=== PATIENT | female | born 1960 | race Caucasian/White ===

== ENCOUNTER → 2016-09-27 | Outpatient (CLI) | payer BC ==
[~2016-09-27] MED LIST: AGG PO; ALEN1TAB21 PO; ATOR-24 PO; BUPR200T2 PO; CHOL100010 PO; CYM/60 PO; CYNI1000 IM; FLUT110A INH; INSPMPNVLG; LEVO125T72 PO; LSN25 PO; LSX40 PO; MAXAIR INH; MONT1TAB3 PO; PANT40TA PO; PRAM1TAB52 PO; PYRI50TA77 PO; TRAZ50TA35 PO
--- NOTE | 2016-09-27 13:41 | DIAGNOSTIC IMAGING REPORT ---
CHEST 2 VIEWS ROUTINE CLINICAL HISTORY: Shortness of breath. COMPARISON STUDY: Chest radiograph October 31, 2014. FINDINGS: Lung volumes are normal. There is no consolidation to suggest pneumonia. There is no evidence of pulmonary edema. Mild left basilar opacity suggests atelectasis. No pneumothorax or pleural effusions present. Cardiomediastinal silhouette is normal. There are cholecystectomy clips. IMPRESSION: No acute cardiopulmonary findings. Electronically signed by: Isaiah Higgins M.D. 09/27/2016 1:40 PM Dictated Date/Time: 09/27/2016 1:39 PM
[2016-09-27 14:52] LABS: BASO % 0.2 %; BASO ABS # 0.02 K/uL (0-0.2); COMPLETE YES; EOS % 0.1 %; IG% 0.2 %; LYMPH % 14.9 %; MEAN CELL VOLUME 89.7 fL (80-100); MEAN CORPUSCULAR HEMOGLOBIN 30.8 pg (25-34); MEAN CORPUSCULAR HGB CONC 34.4 g/dl (32-36); MONO % 9.5 %; NEUT % 75.1 %; PLATELET COUNT 302 K/uL (130-400); RED BLOOD COUNT 4.35 M/uL (4.2-5.4); WHITE BLOOD COUNT 8.72 K/uL (4.8-10.8)
[2016-09-27 14:55] LABS: ALB/GLOB RATIO 1.1 (0.9-2); ALT/SGPT 26 U/L (12-78); AST/SGOT 14 U/L (15-37); BLOOD UREA NITROGEN 24 mg/dl (7-18); BUN/CREATININE RATIO 20.4 (10-20); CALCIUM 9.3 mg/dl (8.5-10.1); CARBON DIOXIDE 27 mmol/L (21-32); CHLORIDE 101 mmol/L (98-107); GLUCOSE 264 mg/dl (70-99); POTASSIUM 4.2 mmol/L (3.5-5.1); SODIUM 136 mmol/L (136-145)
[2016-09-27 15:05] LABS: ALKALINE PHOSPHATASE 84 U/L (45-117); THYROID STIMULATING HORMONE 0.614 uIu/ml (0.300-4.500)
== END | disposition home or self-care (01) ==
LOC: C.RAD1850 13:06
PROVIDERS: ATTEND Internal Medicine
DX: R06.02 Shortness of breath (principal); E55.9 Vitamin D deficiency, unspecified; E03.9 Hypothyroidism, unspecified

== ENCOUNTER 2016-12-07 22:41 | Inpatient (IN) | payer BC ==
[~2016-12-07] VITALS: Ht 172.7 cm; Wt 103.0 kg
[2016-12-07] MEDS ORDERED: SODIUM CHLORIDE 0.9% 1000ML 1,000 ML IV SCH (23:02)
[2016-12-07 23:40] LABS: BASO % 0.6 %; BASO ABS # 0.03 K/uL (0-0.2); COMPLETE YES; EOS % 2.1 %; HEMATOCRIT 42.5 % (37-47); IG% 0.2 %; LYMPH % 26.6 %; LYMPH ABS # 1.39 K/uL (1.2-3.4); MEAN CELL VOLUME 92.8 fL (80-100); MEAN CORPUSCULAR HEMOGLOBIN 30.3 pg (25-34); MEAN CORPUSCULAR HGB CONC 32.7 g/dl (32-36); MONO % 12.1 %; NEUT % 58.4 %; PLATELET COUNT 284 K/uL (130-400); RED BLOOD COUNT 4.58 M/uL (4.2-5.4); WHITE BLOOD COUNT 5.22 K/uL (4.8-10.8)
[2016-12-07 23:50] LABS: PROTHROMBIN TIME (PATIENT) 10.2 SECONDS (9.0-12.0)
[2016-12-08] VITALS (9 sets, daily range): BP systolic 111–163; BP diastolic 68–78; PULSE 72–81; TEMP 36.6–37.1; O2SAT 95–100; BMI 33.9
[2016-12-08] MEDS ORDERED: PHARMACIST DISCHARGE MED REC CONSULT PRN
[2016-12-08] MEDS ORDERED: POLYETHYLENE (MIRALAX) 17 GM PACK PO PRN (00:15)
[2016-12-08] MEDS ORDERED: ALUMINUM/MAGNESIUM/SIMETH (MAALOX MAX) 30 ML UDC PO PRN (00:15)
[2016-12-08] MEDS ORDERED: MAGNESIUM HYDROXIDE SUSP 30 ML UDC PO PRN (00:15)
[2016-12-08] MEDS ORDERED: ONDANSETRON INJ 2 MG/ML 2 ML VIAL IV PRN (00:15)
[2016-12-08] MEDS ORDERED: ACETAMINOPHEN 325 MG TAB PO PRN (00:15)
[2016-12-08 00:16] LABS: BLOOD UREA NITROGEN 11 mg/dl (7-18); BUN/CREATININE RATIO 10.2 (10-20); CARBON DIOXIDE 29 mmol/L (21-32); CHLORIDE 106 mmol/L (98-107); GLUCOSE 275 mg/dl (70-99); SODIUM 143 mmol/L (136-145)
--- NOTE | 2016-12-08 00:22 | History and Physical ---
History & Physical Date & Time of Service: December 08, 2016 at 00:11 Chief Complaint: Numbness L Side Of Body Primary Care Physician: Adolfo Shay M.D. History of Present Illness Source: patient 56 y/o F Hx DM, HTN, HPL - CVA x 2 - L pontine 2006, R thalamic 2010. Developed acute onset of L sided numbness and mild dizziness in the afternoon. Numbness involves her L tongue, face, neck, upper and lower extremities. The symptoms began over 6 hours prior to arrival at the hospital and persist to a lesser degree at the time of admission. She was evaluated by the stroke service in the ER and did not qualify for TPA. She has not had unilateral weakness, visual disturbances, or a LEAHY. The pt states that her symptoms are identical to the symptoms she exhibited when she had her 2nd CVA in 2010. She was taking ASA prior to her initial CVA in 2005. She was then placed on Plavix following her initial CVA and was switched to Aggrenox after her 2nd CVA. Past Medical/Surgical History Medical Problems: (1) Asthma Status: Chronic (2) Diabetes Status: Chronic (3) Kidney disease Status: Chronic 4) HTN 5) HPL 6) Depression 7) CVA x 2 - R weakness 2006 - L pontine infarct - L numbness 2010 - R thalamic infarct 8) KRAIG - complies with CPAP 9) Hypothyroidism Family History Cancer Diabetes mellitus Gallbladder disease Heart disease Hypertension Kidney disease Kidney stones Mother owing to complications of RA Father is living - AF Social History Retired form [employer] following her 2nd CVA Smoking Status: Never Smoker Alcohol Use: occasionally (Rare ETOH) Drug Use: none Marital Status: single Housing status: lives with family Occupational Status: employed Immunizations History of Influenza Vaccine: N/A History of Tetanus Vaccine?: Yes History of Pneumococcal: Yes Pneumococcal Date: Dec 17, 2005 History of Hepatitis B Vaccine: Unknown Multi-Drug Resistant Organisms History of MDRO: No Allergies Coded Allergies: Buspirone (Verified Allergy, Unknown, N/V, 12/08/16) Chocolate (Verified Allergy, Unknown, MAKES HER ANXIOUS, DEPRESSED, ) Clindamycin (Verified Allergy, Unknown, RASH?, 12/08/16) Doxycycline (Verified Allergy, Unknown, N/V, 12/08/16) Lactose (Verified Allergy, Unknown, WAS TOLD TO AVOID DAIRY, 12/08/16) Meperidine (Verified Allergy, Unknown, NAUSEA AND VOMITING, 12/08/16) Minocycline (Verified Allergy, Unknown, ., 12/08/16) Paroxetine (Verified Allergy, Unknown, ., 12/08/16) Penicillins (Verified Allergy, Unknown, NAUSEA, 12/08/16) Serotonin Reuptake Inhibitors (Verified Allergy, Unknown, BUSPAR, PAXIL- VERY TIRED, 12/08/16) Sulfa Antibiotics (Verified Allergy, Unknown, BACTRIM, 12/08/16) Sulfamethoxazole w/Trimethoprim (Verified Allergy, Unknown, N/V, 12/08/16) Tetracycline (Verified Allergy, Unknown, MINOCYCLINE, DOXYCYCLINE-LUPUS SYMPTOMS, 12/08/16) (PT WAS ON TCN AT HOME 12/16/10 ADMIT, PER MED REC) Yeast (Verified Allergy, Unknown, UNKNOWN-EATS BREAD PRODUCTS, 12/08/16) Home Medications Scheduled Alendronate Sodium (Alendronate Sodium), 35 MG PO WK Atorvastatin (Lipitor), 40 MG PO HS Bupropion Hcl (Wellbutrin Sr), 200 MG PO BID Cholecalciferol (Vitamin D), 2 TABS PO QAM Cyanocobalamin (Cyanocobalamin), 1 ML IM MONTHLY Dipyridamole/Aspirin (Aggrenox 25-200 mg), 1 CAP PO BID Duloxetine HCl (Cymbalta), 60 MG PO BID Fluticasone Propionate Hfa (Flovent Hfa 110MCG Inhaler), 2 PUFF INH BID Insulin Aspart (novoLOG INSULIN PUMP ), 1 EA N/A UD Levothyroxine Sodium (Synthroid), 125 MCG PO QAM Lisinopril (Lisinopril), 2.5 MG PO HS Montelukast Sodium (Singulair), 10 MG PO HS Pantoprazole (Protonix), 40 MG PO QAM Pramipexole Dihydrochloride (Mirapex), 2 TABS PO HS Pyridoxine Hcl (Vitamin B 6), 1 TAB PO QAM Trazodone Hcl (Trazodone), 25 MG PO HS Scheduled PRN Furosemide (Furosemide), 40 MG PO QAM PRN for PRN [Maxair], 2 PUFFS INH QID PRN for Shortness of Breath Review of Systems Constitutional: No chills, No fever, No sweats Eyes: No worsening of vision ENT: No hearing loss, No nasal symptoms, No unusual epistaxis Respiratory: No cough, No wheezing Cardiovascular: No PND, No chest pain, No orthopnea Abdomen: No pain, No vomiting Genitourinary - Female: No dysuria, No hematuria, No urinary frequency, No urinary incontinence, No urinary retention, No urinary urgency Neurologic: + numbness/tingling, No memory loss, No weakness Psychiatric: No depression symptoms Endocrine: No fatigue Hematologic / Lymphatic: No abnormal bleeding/bruising Integumentary: No rash Allergic / Immunologic: No environmental allergies Physical Exam Vital Signs Date Time Temp Pulse Resp B/P Pulse Ox O2 Delivery O2 Flow Rate FiO2 12/07/16 23:43 74 20 143/61 98 Room Air 12/07/16 23:37 98 Room Air 12/07/16 23:30 82 16 158/73 100 Room Air 12/07/16 23:11 76 16 152/63 12/07/16 23:07 76 16 149/74 12/07/16 23:02 83 12/07/16 22:43 36.6 77 18 165/71 98 Room Air General Appearance: WD/WN, no apparent distress Head: normocephalic, atraumatic Eyes: normal inspection, PERRL, EOMI ENT: normal ENT inspection, pharynx normal Neck: supple, no JVD Respiratory/Chest: chest non-tender, lungs clear, normal breath sounds, no respiratory distress, no accessory muscle use Cardiovascular: regular rate, rhythm, no edema, no gallop Abdomen/GI: normal bowel sounds, non tender, soft Back: normal inspection, no CVA tenderness, no muscle spasm, normal range of motion Extremities/Musculoskelatal: normal inspection, no calf tenderness, normal capillary refill, no pedal edema, normal range of motion Neurologic/Psych: + pertinent finding (AAO x 3 , no facial asymmetry, tongue deviation, nystagmus or periorbital deficits. Strength is equal in all extrems , no pronator drift or dorsiflexion deficits. Coordination is intact - there is numbness to light touch over the L upper and lower extremities and L shoulder - sensation is intat over her face and neck) Skin: normal color, warm/dry, no rash Diagnostics Laboratory Results Results Past 24 Hours Test 12/07/16 23:02 12/07/16 23:03 12/07/16 23:29 12/07/16 23:51 Range/Units Creatine Kinase MB Ratio 0-3.0 Bedside Glucose 278 70-90 mg/dl White Blood Count 5.22 4.8-10.8 K/uL Red Blood Count 4.58 4.2-5.4 M/uL Hemoglobin 13.9 12.0-16.0 g/dL Hematocrit 42.5 37-47 % Mean Corpuscular Volume 92.8 80-100 fL Mean Corpuscular Hemoglobin 30.3 25-34 pg Mean Corpuscular Hemoglobin Concent 32.7 32-36 g/dl Platelet Count 284 130-400 K/uL Mean Platelet Volume 10.0 7.4-10.4 fL Neutrophils (%) (Auto) 58.4 % Lymphocytes (%) (Auto) 26.6 % Monocytes (%) (Auto) 12.1 % Eosinophils (%) (Auto) 2.1 % Basophils (%) (Auto) 0.6 % Neutrophils # (Auto) 3.05 1.4-6.5 K/uL Lymphocytes # (Auto) 1.39 1.2-3.4 K/uL Monocytes # (Auto) 0.63 0.11-0.59 K/uL Eosinophils # (Auto) 0.11 0-0.5 K/uL Basophils # (Auto) 0.03 0-0.2 K/uL RDW Standard Deviation 44.7 36.4-46.3 fL RDW Coefficient of Variation 13.1 11.5-14.5 % Immature Granulocyte % (Auto) 0.2 % Immature Granulocyte # (Auto) 0.01 0.00-0.02 K/uL Prothrombin Time 10.2 9.0-12.0 SECONDS Prothromb Time International Ratio 1.0 0.9-1.1 Activated Partial Thromboplast Time 25.3 21.0-31.0 SECONDS Partial Thromboplastin Ratio 1.0 Potassium Level 3.5-5.1 mmol/L Total Creatine Kinase 26-192 U/L Test 12/08/16 00:03 Range/Units Diagnostic Radiology NO acute findings on CT head EKG NSR , R axis - unchanged Impression Assessment and Plan 56 y/o F Hx DM, HTN, HPL - CVA x 2 - L pontine 2007, R thalamic 2010. Developed acute onset of L sided numbness and mild dizziness in the afternoon. Numbness involves her L tongue, face, neck, upper and lower extremities. The symptoms began over 6 hours prior to arrival at the hospital. States that her symptoms are identical to the symptoms she exhibited when she had her 2nd CVA in 2010. 1) CVA - admitted under CVA protocol - TPA is not indicated and she was out of the therapeutic window regardless. She was taking ASA prior to her initial CVA in 2005. She was then placed on Plavix following her initial CVA and was switched to Aggrenox after her 2nd CVA. Stroke service had advised that she continue Aggrenox as prescribed. We have increased her Statin dose and requested an AM neurology consult. MRI/ MRA, carotid studies scheduled. 2) DM - ot has a oumo which she can continue to use 3) HTN - antihypertensives held - she is normotensive on admission 4) KRAIG - CPAP HS 5) Asthma - albuterol PRN and cont Advair 6) CKD is listed in history - BMP pending at time of admission Full code - Heparin prophylaxis Total time for this admit including review of labs, meds, EKG, CT records - discussion with pt and ER attending - 43 min Level of Care Telemetry Resuscitation Status FULL RESUSCITATION VTE Prophylaxis VTE Risk Assessment Done? Y/N: Yes Risk Level: Low Given or contraindicated: Unfractionated heparin SQ
--- NOTE | 2016-12-08 02:05 | EMERGENCY ROOM VISIT NOTE ---
History Report prepared by Peter: Do Betancourt Under the Supervision of: Dr. Kunal Downey M.D. First contact with patient: 22:53 Chief Complaint: STROKE SYMPTOMS Stated Complaint: NUMBNESS L SIDE OF BODY History of Present Illness The patient is a 56 year old female who presents to the Emergency Room with complaints of worsening stroke-like symptoms that started 2.5 hours ago, around 2029. The patient states that she is experiencing tongue numbness, neck numbness , left arm numbness, and left leg numbness. She states that her symptoms started with numbness in her left arm then spread to the rest of her body. The patient is also experiencing dizziness. She denies headaches, visual changes, trouble swallowing, recent fevers, recent head trauma, chest pain, new shortness of breath, trouble ambulating, one-sided weakness, vomiting, diarrhea , and recent illness. The patient has a history of a thalamic stroke in 2010. She had some residual changes in sensation in her left arm and left leg from that stroke, but today her left arm and left leg were significantly more numb than they typically are. The patient states that her current symptoms are the same as the symptoms she experienced with her previous stroke. The patient is on Aggrenox and denies being on Coumadin or Xarelto. Source of History: patient Onset: 2.5 hours ago, around 2029 Position: head, tongue, neck, arm (left), leg (left) Quality: other (stroke-like symptoms) Timing: worsening Associated Symptoms: + numbness (tongue, neck, left arm, left leg), No SOB, No chest pain, No diarrhea, No fevers, No headache, No vomiting, No weakness ( one-sided) Note: dizziness, no visual changes, no trouble swallowing, no recent head trauma, no trouble ambulating, no recent illness Review of Systems See HPI for pertinent positives & negatives. A total of 10 systems reviewed and were otherwise negative. Past Medical & Surgical Medical Problems: (1) Asthma (2) Diabetes (3) Kidney disease Family History Cancer Diabetes mellitus Gallbladder disease Heart disease Hypertension Kidney disease Kidney stones Social History Smoking Status: Never Smoker Alcohol Use: none Drug Use: none Marital Status: single Occupation Status: employed Current/Historical Medications Scheduled Alendronate Sodium (Alendronate Sodium), 35 MG PO WK Atorvastatin (Lipitor), 40 MG PO HS Bupropion Hcl (Wellbutrin Sr), 200 MG PO BID Cholecalciferol (Vitamin D), 2 TABS PO QAM Cyanocobalamin (Cyanocobalamin), 1 ML IM MONTHLY Dipyridamole/Aspirin (Aggrenox 25-200 mg), 1 CAP PO BID Duloxetine HCl (Cymbalta), 60 MG PO BID Fluticasone Propionate Hfa (Flovent Hfa 110MCG Inhaler), 2 PUFF INH BID Insulin Aspart (novoLOG INSULIN PUMP ), 1 EA N/A UD Levothyroxine Sodium (Synthroid), 125 MCG PO QAM Lisinopril (Lisinopril), 2.5 MG PO HS Montelukast Sodium (Singulair), 10 MG PO HS Pantoprazole (Protonix), 40 MG PO QAM Pramipexole Dihydrochloride (Mirapex), 2 TABS PO HS Pyridoxine Hcl (Vitamin B 6), 1 TAB PO QAM Trazodone Hcl (Trazodone), 25 MG PO HS Scheduled PRN Furosemide (Furosemide), 40 MG PO QAM PRN for PRN [Maxair], 2 PUFFS INH QID PRN for Shortness of Breath Allergies Coded Allergies: Buspirone (Verified Allergy, Unknown, N/V, 12/08/16) Chocolate (Verified Allergy, Unknown, MAKES HER ANXIOUS, DEPRESSED, ) Clindamycin (Verified Allergy, Unknown, RASH?, 12/08/16) Doxycycline (Verified Allergy, Unknown, N/V, 12/08/16) Lactose (Verified Allergy, Unknown, WAS TOLD TO AVOID DAIRY, 12/08/16) Meperidine (Verified Allergy, Unknown, NAUSEA AND VOMITING, 12/08/16) Minocycline (Verified Allergy, Unknown, ., 12/08/16) Paroxetine (Verified Allergy, Unknown, ., 12/08/16) Penicillins (Verified Allergy, Unknown, NAUSEA, 12/08/16) Serotonin Reuptake Inhibitors (Verified Allergy, Unknown, BUSPAR, PAXIL- VERY TIRED, 12/08/16) Sulfa Antibiotics (Verified Allergy, Unknown, BACTRIM, 12/08/16) Sulfamethoxazole w/Trimethoprim (Verified Allergy, Unknown, N/V, 12/08/16) Tetracycline (Verified Allergy, Unknown, MINOCYCLINE, DOXYCYCLINE-LUPUS SYMPTOMS, 12/08/16) (PT WAS ON TCN AT HOME 12/16/10 ADMIT, PER MED REC) Yeast (Verified Allergy, Unknown, UNKNOWN-EATS BREAD PRODUCTS, 12/08/16) Physical Exam Vital Signs Date Time Temp Pulse Resp B/P Pulse Ox O2 Delivery O2 Flow Rate FiO2 12/07/16 23:43 74 20 143/61 98 Room Air 12/07/16 23:37 98 Room Air 12/07/16 23:30 82 16 158/73 100 Room Air 12/07/16 23:11 76 16 152/63 12/07/16 23:07 76 16 149/74 12/07/16 23:02 83 12/07/16 22:43 36.6 77 18 165/71 98 Room Air Physical Exam Constitutional: Vital signs reviewed. Eyes: Pupils are equal round reactive to light. Conjunctiva are noninjected. ENT: Pharynx is clear without erythema or exudate. Mucous membranes are moist. Neck supple without meningeal signs. Respiratory: Clear to auscultation bilaterally. Breath sounds are equal bilaterally. Cardiovascular: Regular rate and rhythm. No rubs or gallops. GI: Soft, nondistended and nontender. Bowel sounds are present. Musculoskeletal: No peripheral edema. No lower extremity tenderness. Integumentary: No cyanosis. Neurological: The patient is awake and alert. Cranial nerves II-XII are intact except for diminished sensation to the upper face. Motor is 5 out of 5 all extremities except the left lower extremity which is 4-5. Sensation is intact to light touch all extremities but diminished in the left side over the neck, leg and arm. Normal speech. No pronator drift. No limb ataxia. Psychiatric: Normal affect. Medical Decision & Procedures ER Provider Diagnostic Interpretation: X-ray results as stated below per interpretation by me and CT results as stated below per my review and the statrad's interpretation: CHEST X-RAY: MY IMPRESSION: No acute cardiopulmonary process. No pneumonia. CT HEAD: STATRAD IMPRESSION: Comparison MRI brain 07/12/[address] head without contrast 03/21/2011. No ICH, mass effect or edema. No noncontrast CT evidence of acute cortical stroke. Visualized sinuses and mastoid air cells are clear. Laboratory Results 12/07/16 23:29 Red Blood Count 4.58, Mean Corpuscular Volume 92.8, Mean Corpuscular Hemoglobin 30.3, Mean Corpuscular Hemoglobin Concent 32.7, Mean Platelet Volume 10.0, Neutrophils (%) (Auto) 58.4, Lymphocytes (%) (Auto) 26.6, Monocytes (%) (Auto) 12.1, Eosinophils (%) (Auto) 2.1, Basophils (%) (Auto) 0.6, Neutrophils # (Auto ) 3.05, Lymphocytes # (Auto) 1.39, Monocytes # (Auto) 0.63, Eosinophils # (Auto ) 0.11, Basophils # (Auto) 0.03 12/07/16 23:29 Test 12/07/16 23:03 12/07/16 23:29 Bedside Glucose 278 mg/dl (70-90) White Blood Count 5.22 K/uL (4.8-10.8) Red Blood Count 4.58 M/uL (4.2-5.4) Hemoglobin 13.9 g/dL (12.0-16.0) Hematocrit 42.5 % (37-47) Mean Corpuscular Volume 92.8 fL (80-100) Mean Corpuscular Hemoglobin 30.3 pg (25-34) Mean Corpuscular Hemoglobin Concent 32.7 g/dl (32-36) Platelet Count 284 K/uL (130-400) Mean Platelet Volume 10.0 fL (7.4-10.4) Neutrophils (%) (Auto) 58.4 % Lymphocytes (%) (Auto) 26.6 % Monocytes (%) (Auto) 12.1 % Eosinophils (%) (Auto) 2.1 % Basophils (%) (Auto) 0.6 % Neutrophils # (Auto) 3.05 K/uL (1.4-6.5) Lymphocytes # (Auto) 1.39 K/uL (1.2-3.4) Monocytes # (Auto) 0.63 K/uL (0.11-0.59) Eosinophils # (Auto) 0.11 K/uL (0-0.5) Basophils # (Auto) 0.03 K/uL (0-0.2) RDW Standard Deviation 44.7 fL (36.4-46.3) RDW Coefficient of Variation 13.1 % (11.5-14.5) Immature Granulocyte % (Auto) 0.2 % Immature Granulocyte # (Auto) 0.01 K/uL (0.00-0.02) Prothrombin Time 10.2 SECONDS (9.0-12.0) Prothromb Time International Ratio 1.0 (0.9-1.1) Activated Partial Thromboplast Time 25.3 SECONDS (21.0-31.0) Partial Thromboplastin Ratio 1.0 Anion Gap 8.0 mmol/L (3-11) Est Creatinine Clear Calc Drug Dose 71.0 ml/min Estimated GFR () 65.0 Estimated GFR (Non- 56.1 BUN/Creatinine Ratio 10.2 (10-20) Calcium Level 9.0 mg/dl (8.5-10.1) Creatine Kinase MB 0.6 ng/ml (0.5-3.6) Creatine Kinase MB Ratio (0-3.0) Troponin I < 0.015 ng/ml (0-0.045) Laboratory results as reviewed by me. Medications Administered Medications (Trade) Dose Ordered Sig/Aram Route Start Time Stop Time Status Last Admin Dose Admin Sodium Chloride (Nss 1000ml) 1,000 ml @ 50 mls/hr Q20H IV 12/07/16 23:02 12/08/16 01:48 DC 12/07/16 23:38 50 MLS/HR ECG Indication: other (neuro symptoms) Rate (beats per minute): 78 Rhythm: normal sinus Findings: no acute ischemic change, no ectopy ED Course 2257: The patient was evaluated in room C8. A complete history and physical exam was performed. 2301: A stroke alert was called based on my physical exam findings. 2302: Ordered Sodium Chloride 1000 ml @ 50 mls/hr IV 2322: The patient just got back from CT and the patient was moved to room A1. 2325: I spoke with Dr. Reese of Radiology. He said that the patient has nothing acute on her head CT. 2328: I discussed the option of tPA with the patient and her family. The patient agrees that she does not want tPA even if it is indicated. 2331: I spoke with Dr. Lam of [facility]. We discussed the patient and her results. He states that she is not a tPA candidate because she is outside of the 3 hour window and has mild symptoms. 2332: Upon reevaluation, the patient's are unchanged. I discussed mulu's findings with the patient and her family. They verbalized agreement of the treatment plan. The patient will be evaluated for further management. 6918: I spoke with Dr. Macias of [facility]. We discussed the patient and her results. The patient will be further evaluated by him. Medical Decision This is a 56-year-old female who presents with neurologic symptoms. Differential diagnosis includes CVA, TIA, intracranial hemorrhage, intracranial mass, metabolic derangement. I did perform a limited focused review of portions of the patient's old chart on the electronic medical record. The patient had a right-sided thalamic stroke in 2010. Medication Reconciliation: I attest that I have personally reviewed the patient' s current medication list. Blood Pressure Screening: Patient was found to have an elevated blood pressure and was referred to their primary doctor for recheck and further treatment. I did evaluate the patient as noted above. The patient has a prior history of stroke. She is presenting with similar stroke symptoms and has deficits on her left side as described above. I immediately called a stroke alert. After my evaluation the patient has had symptoms for over 2-1/2 hours. IV access was established. The patient was placed on a continuous monitor tech. I did order a stat CT of the head. I did review the images myself as well as the radiology report as described above. There is no evidence of acute process per the radiologist. She is now chest at the 3 hour edel. I did immediately call the neurologist commissioning manager. After discussion of the patient he didn't feel the patient was a candidate for IV TPA. She is past 3 hour edel, has mild symptoms and is not a candidate for the extended for the four and a half hour period. I did have a long discussion with her about this and she agreed that she did not wish to have TPA even if she was a candidate at this time. I did order and personally review the patient's 12-lead EKG and chest x-ray as described above. I did order and review the patient's blood work as noted in the electronic medical record. The patient has no change in her symptoms. The neurologist recommended permissive hypertension and continue her Aggrenox. The case was discussed with the shelter case manager and hospitalist. Consults Time Called: [phone] Consulting Physician: Dr. Reese - Radiology Returned Call: [phone] Reese of Radiology. He said that the patient has nothing acute on her head CT. Additional Consults: Time Called: [phone] Consulted Physician: Dr. Lam - [facility] Returned Call: [phone] Additional Comments: I spoke with Dr. Lam of [facility]. We discussed the patient and her results. He states that she is not a tPA candidate because she is outside of the 3 hour window and has mild symptoms. Time Called: [phone] Consulted Physician: Dr. Macias - [facility] Returned Call: [phone] Additional Comments: I spoke with Dr. Macias of [facility]. We discussed the patient and her results. The patient will be further evaluated by him. Impression Primary Impression: CVA (cerebral vascular accident) Scribe Attestation The scribe's documentation has been prepared under my direct and personally reviewed by me in its entirety. I confirm that the note above accurately reflects all work, treatment, procedures, and medical decision making performed by me. Departure Information Dispostion Being Evaluated By Hospitalist Referrals Adolfo Shay M.D. (PCP) Patient Instructions My [facility] Stroke History Time Last Known Well 2030 Stroke t-PA Criteria Reviewed Does NOT meet criteria for t-PA Reason t-PA Not Given Treatment not indicated Extended Window (3-4.5 hour) History of diabetes AND stroke Problem Qualifiers Primary Impression: CVA (cerebral vascular accident) CVA mechanism: unspecified Qualified Codes: I63.9 - Cerebral infarction, unspecified
[2016-12-08] MEDS ORDERED: INSULIN ASPART 100 UNITS/ML VIAL SC PRN (03:30)
[2016-12-08] MEDS ORDERED: GLUCOSE 40% GEL 15 GM TUBE PO PRN (03:30)
[2016-12-08] MEDS ORDERED: GLUCAGON FOR INJ 1 MG VIAL SQ PRN (03:30)
[2016-12-08] MEDS ORDERED: GLUCOSE 10 TABS/TUBE PO PRN (03:30)
[2016-12-08] MEDS ORDERED: DEXTROSE 50% 50 ML SYR IV PRN (03:30)
[2016-12-08] MEDS: LEVOTHYROXINE 125 MCG TAB PO SCH (05:31)
[2016-12-08] MEDS: HEPARIN SOD 5000 UNIT/0.5 ML CARP SQ SCH ×3 (05:33→20:49)
--- NOTE | 2016-12-08 06:35 | DIAGNOSTIC IMAGING REPORT ---
CT OF THE HEAD WITHOUT CONTRAST CLINICAL HISTORY: Stroke alert. Left sided numbness. COMPARISON STUDY: MRI the brain July 12, 2015. CT DOSE: 614.27 mGy.cm TECHNIQUE: Helical axial images of the head were obtained without IV contrast. Automated exposure control was utilized for the study. FINDINGS: No acute intracranial hemorrhage, midline shift or mass effect is present. Ventricular system is normal. Basilar cisterns are patent. There are no CT findings to suggest acute dural sinus thrombosis or acute territorial infarct. White matter hypodensities are unchanged. There are no calvarial abnormalities. Visualized portions of the sinuses and mastoid air cells are clear. IMPRESSION: No acute intracranial findings. Electronically signed by: Isaiah Higgins M.D. 12/08/2016 6:34 AM Dictated Date/Time: 12/08/2016 6:31 AM
--- NOTE | 2016-12-08 06:50 | DIAGNOSTIC IMAGING REPORT ---
CHEST ONE VIEW PORTABLE CLINICAL HISTORY: Stroke COMPARISON STUDY: Chest radiograph September 27, 2016. FINDINGS: Lung volumes are normal. There is no pneumothorax or pleural effusion. There is no consolidation to suggest pneumonia. There is no evidence of pulmonary edema. Linear left lower lung opacity favors atelectasis or scarring. IMPRESSION: No acute cardiopulmonary findings. Electronically signed by: Isaiah Higgins M.D. 12/08/2016 6:49 AM Dictated Date/Time: 12/08/2016 6:49 AM
[2016-12-08] MEDS: NovoLOG INSULIN PUMP SCH ×3 (07:00→20:42)
[2016-12-08] MEDS: FLUTICASONE HFA 110MCG INHALER INH SCH ×2 (07:40→20:43)
[2016-12-08] MEDS: DIPYRIDAMOLE/ASPIRIN CAP PO SCH ×2 (07:45→20:45)
[2016-12-08] MEDS: DULOXETINE HCL 60 MG CAP PO SCH ×2 (07:45→20:43)
[2016-12-08] MEDS: PANTOprazole SOD 40 MG TAB PO SCH (07:46)
[2016-12-08] MEDS: BuPROPion SR 100 MG TABCR PO SCH ×2 (07:46→20:44)
--- NOTE | 2016-12-08 09:16 | Neurology Consultation ---
Neurology Consultation Date of Consultation: December 08, 2016. Attending Physician: Titi Macias M.D. Primary Care Physician: Adolfo Shay M.D. Reason for Consultation: "CVA" History of Present Illness Source: patient, hospital records The patient is a 56-year-old female with a chief complaint of numbness. She indicates the numbness began acutely, last night, about 2-1/2 hours prior to her evaluation in the emergency department. The numbness affected the left side of her body including the face arm and leg although it has been gradually improving. This morning, the numbness affects only her left upper extremity. She has some associated dizziness at the time of symptom onset of this particular symptom has resolved. She denies headache. The patient has a history of multiple ischemic infarcts and is currently prescribed Aggrenox. She has previously been on Plavix. Past medical history notable for insulin-dependent diabetes mellitus for which the patient has an insulin pump, hypertension, depression, restless leg syndrome, diabetic peripheral neuropathy and retinopathy. Family history is notable for hypertension and diabetes mellitus. Past Medical/Surgical History Medical Problems: (1) Asthma Status: Chronic (2) CVA (cerebral vascular accident) Status: Acute (3) Diabetes Status: Chronic (4) Kidney disease Status: Chronic Family History Family history notable for hypertension and diabetes mellitus Social History Alcohol Use: occasionally (Rare ETOH) Drug Use: none Marital Status: single Occupation Status: employed Allergies Coded Allergies: Buspirone (Verified Allergy, Unknown, N/V, 12/08/16) Chocolate (Verified Allergy, Unknown, MAKES HER ANXIOUS, DEPRESSED, ) Clindamycin (Verified Allergy, Unknown, RASH?, 12/08/16) Doxycycline (Verified Allergy, Unknown, N/V, 12/08/16) Lactose (Verified Allergy, Unknown, WAS TOLD TO AVOID DAIRY, 12/08/16) Meperidine (Verified Allergy, Unknown, NAUSEA AND VOMITING, 12/08/16) Minocycline (Verified Allergy, Unknown, ., 12/08/16) Paroxetine (Verified Allergy, Unknown, ., 12/08/16) Penicillins (Verified Allergy, Unknown, NAUSEA, 12/08/16) Serotonin Reuptake Inhibitors (Verified Allergy, Unknown, BUSPAR, PAXIL- VERY TIRED, 12/08/16) Sulfa Antibiotics (Verified Allergy, Unknown, BACTRIM, 12/08/16) Sulfamethoxazole w/Trimethoprim (Verified Allergy, Unknown, N/V, 12/08/16) Tetracycline (Verified Allergy, Unknown, MINOCYCLINE, DOXYCYCLINE-LUPUS SYMPTOMS, 12/08/16) (PT WAS ON TCN AT HOME 12/16/10 ADMIT, PER MED REC) Yeast (Verified Allergy, Unknown, UNKNOWN-EATS BREAD PRODUCTS, 12/08/16) Current Inpatient Medications Current Inpatient Medications Medications (Trade) Dose Ordered Sig/Aram Route Start Time Stop Time Status Last Admin Dose Admin Miscellaneous Information (Pharmacist Discharge Med Rec Consult) 1 ea UD PRN N/A 12/08/16 00:00 01/07/17 00:00 Atorvastatin Calcium (Lipitor Tab) 80 mg HS PO 12/08/16 21:00 01/07/17 20:59 Bupropion HCl (Wellbutrin-Sr Tab) 200 mg BID PO 12/08/16 09:00 01/07/17 08:59 12/08/16 07:46 200 MG Dipyridamole/ Aspirin (Aggrenox 200MG/ 25MG Cap) 1 cap BID PO 12/08/16 09:00 01/07/17 08:59 12/08/16 07:45 1 CAP Duloxetine HCl (Cymbalta Cap) 60 mg BID PO 12/08/16 09:00 01/07/17 08:59 12/08/16 07:45 60 MG Fluticasone Propionate (Flovent Hfa 110MCG Inhaler) 1 puffs BID INH 12/08/16 09:00 01/07/17 08:59 12/08/16 07:40 1 PUFFS Insulin Aspart (novoLOG INSULIN PUMP) 1 ea ACHS N/A 12/08/16 07:00 01/07/17 06:59 Levothyroxine Sodium (Synthroid Tab) 125 mcg DAILYBB PO 12/08/16 06:00 01/07/17 05:59 12/08/16 05:31 125 MCG Montelukast Sodium (Singulair Tab) 10 mg HS PO 12/08/16 21:00 01/07/17 20:59 Pantoprazole Sodium (Protonix Tab) 40 mg QAM PO 12/08/16 09:00 01/07/17 08:59 12/08/16 07:46 40 MG Pramipexole Dihydrochloride (miraPEX TAB) 0.5 mg HS PO 12/08/16 21:00 01/07/17 20:59 Miscellaneous Information (Order Awaiting Action) 1 ea QS N/A 12/08/16 08:00 01/07/17 07:59 Heparin Sodium (Porcine) (Heparin Sq 5000 Unit/0.5ml) 5,000 unit Q8H SQ 12/08/16 06:00 01/07/17 05:59 12/08/16 05:33 5,000 UNIT Acetaminophen (Tylenol Tab) 650 mg Q4H PRN PO 12/08/16 00:15 01/07/17 00:14 Al Hydrox/Mg Hydrox/Simethicone (Maalox Max Susp) 15 ml Q4H PRN PO 12/08/16 00:15 01/07/17 00:14 Magnesium Hydroxide (Milk Of Magnesia Susp) 30 ml Q12H PRN PO 12/08/16 00:15 01/07/17 00:14 Ondansetron HCl (Zofran Inj) 4 mg Q6H PRN IV 12/08/16 00:15 01/07/17 00:14 Polyethylene (Miralax Powder Packet) 17 gm DAILY PRN PO 12/08/16 00:15 01/07/17 00:14 Glucose (Glucose 40% Gel) 15-30 GRAMS 15 GRAMS... UD PRN PO 12/08/16 03:30 01/07/17 03:29 Glucose (Glucose Chew Tab) 4-8 Tablets 4 Tabl... UD PRN PO 12/08/16 03:30 01/07/17 03:29 Dextrose (Dextrose 50% 50ML Syringe) 25-50ML OF 50% DW IV FOR... UD PRN IV 12/08/16 03:30 01/07/17 03:29 Glucagon (Glucagon Inj) 1 mg UD PRN SQ 12/08/16 03:30 01/07/17 03:29 Insulin Aspart (novoLOG ASPART) SLIDING SCALE PRN PRN SC 12/08/16 03:30 01/07/17 03:29 Review of Systems Constitutional: No fevers or chills Eyes: No recent changes in vision Cardiovascular: No palpitations or syncope Neurological: As per history of present illness Hematologic: No excessive bleeding or bruising All remaining systems reviewed and are negative Physical Exam Vital Signs (Past 24 Hrs): Date Time Temp Pulse Resp B/P Pulse Ox O2 Delivery O2 Flow Rate FiO2 12/08/16 07:51 36.6 72 18 111/72 98 12/08/16 04:38 36.9 78 17 124/72 97 Room Air 12/08/16 04:00 97 Room Air 12/08/16 00:33 78 20 124/93 97 Room Air 12/07/16 23:43 74 20 143/61 98 Room Air 12/07/16 23:37 98 Room Air 12/07/16 23:30 82 16 158/73 100 Room Air 12/07/16 23:11 76 16 152/63 12/07/16 23:07 76 16 149/74 12/07/16 23:02 83 12/07/16 22:43 36.6 77 18 165/71 98 Room Air The patient is a well-developed well-nourished middle-aged female. She is alert and oriented to person place and time. Recent and remote memory intact. Attention and concentration normal. Patient exhibits a normal spontaneous speech pattern. She is able to name objects and repeat phrases. Patient exhibits an age-appropriate fund of knowledge and normal vocabulary. Visual daugherty full to confrontation. Visual acuity normal. Eye movements normal. No nystagmus. Facial sensation slightly diminished along the left side. There is no facial droop or facial weakness. Hearing intact. There is normal spontaneous movement of the palate. Shoulder shrug strength intact. Tongue protrudes to midline. Vibratory sensation is mildly decreased at the ankles. Proprioception intact. And station to temperature and light touch intact. Deep tendon reflexes are intact and symmetrical for the upper and lower limbs although slightly diminished at the Achilles tendons. The right plantar response is upgoing. Left plantar response silent. There is no dysdiadochokinesia. There is slight dysmetria with finger to nose on the left. Ophthalmoscopic examination completed. Optic disks appear normal, no papilledema. There appears to be evidence of proliferative retinopathy in both eyes. Carotid pulses normal bilaterally, no bruits. Muscle strength normal for the upper and lower limbs proximally and distally. Muscle tone normal for the upper and lower limbs. No atrophy. No abnormal movements observed. Station somewhat wide-based, gait normal. Laboratory Results Past 24 Hours: 12/07/16 23:29 Red Blood Count 4.58, Mean Corpuscular Volume 92.8, Mean Corpuscular Hemoglobin 30.3, Mean Corpuscular Hemoglobin Concent 32.7, Mean Platelet Volume 10.0, Neutrophils (%) (Auto) 58.4, Lymphocytes (%) (Auto) 26.6, Monocytes (%) (Auto) 12.1, Eosinophils (%) (Auto) 2.1, Basophils (%) (Auto) 0.6, Neutrophils # (Auto ) 3.05, Lymphocytes # (Auto) 1.39, Monocytes # (Auto) 0.63, Eosinophils # (Auto ) 0.11, Basophils # (Auto) 0.03 12/07/16 23:29 12/08/16 00:14 Test 12/07/16 23:29 12/08/16 00:14 12/08/16 06:44 White Blood Count 5.22 K/uL (4.8-10.8) Red Blood Count 4.58 M/uL (4.2-5.4) Hemoglobin 13.9 g/dL (12.0-16.0) Hematocrit 42.5 % (37-47) Mean Corpuscular Volume 92.8 fL (80-100) Mean Corpuscular Hemoglobin 30.3 pg (25-34) Mean Corpuscular Hemoglobin Concent 32.7 g/dl (32-36) Platelet Count 284 K/uL (130-400) Mean Platelet Volume 10.0 fL (7.4-10.4) Neutrophils (%) (Auto) 58.4 % Lymphocytes (%) (Auto) 26.6 % Monocytes (%) (Auto) 12.1 % Eosinophils (%) (Auto) 2.1 % Basophils (%) (Auto) 0.6 % Neutrophils # (Auto) 3.05 K/uL (1.4-6.5) Lymphocytes # (Auto) 1.39 K/uL (1.2-3.4) Monocytes # (Auto) 0.63 K/uL (0.11-0.59) Eosinophils # (Auto) 0.11 K/uL (0-0.5) Basophils # (Auto) 0.03 K/uL (0-0.2) RDW Standard Deviation 44.7 fL (36.4-46.3) RDW Coefficient of Variation 13.1 % (11.5-14.5) Immature Granulocyte % (Auto) 0.2 % Immature Granulocyte # (Auto) 0.01 K/uL (0.00-0.02) Prothrombin Time 10.2 SECONDS (9.0-12.0) Prothromb Time International Ratio 1.0 (0.9-1.1) Activated Partial Thromboplast Time 25.3 SECONDS (21.0-31.0) Partial Thromboplastin Ratio 1.0 Anion Gap 8.0 mmol/L (3-11) Est Creatinine Clear Calc Drug Dose 71.0 ml/min Estimated GFR () 65.0 Estimated GFR (Non- 56.1 BUN/Creatinine Ratio 10.2 (10-20) Calcium Level 9.0 mg/dl (8.5-10.1) Creatine Kinase MB 0.6 ng/ml (0.5-3.6) Creatine Kinase MB Ratio (0-3.0) Troponin I < 0.015 ng/ml (0-0.045) Total Creatine Kinase 58 U/L (26-192) Bedside Glucose 126 mg/dl (70-90) Imaging I reviewed the images and radiologist's interpretation of the CT of the head completed in the emergency department. No evidence of acute process. A brain MRI completed in June 2015 revealed multiple chronic ischemic pontine lacunar infarcts. Images reviewed. An electrocardiogram completed during this admission revealed a sinus rhythm, 78 bpm Impression Sensory TIA versus possible small ischemic stroke. Localization includes the right thalamus or possibly ruth. Patient seems to be improving. Stroke risk factors in this patient include prior stroke, insulin-dependent diabetes mellitus, and hypertension. She reports compliance with her treatment regimen. Plan Agree with MRI of the brain, MRA of the head, and carotid ultrasound as ordered. Continue Aggrenox. Optimize management of diabetes mellitus and hypertension. Consider obtaining an up-to-date lipid profile. No further recommendations. Please contact me if I may be of further assistance.
[2016-12-08] MEDS ORDERED: DIAZEPAM 5MG TAB PO ONE (12:00)
[2016-12-08] MEDS ORDERED: GADAVIST IV PRN (14:15)
--- NOTE | 2016-12-08 14:20 | DIAGNOSTIC IMAGING REPORT ---
MRI OF THE BRAIN WITHOUT CONTRAST CLINICAL HISTORY: Stroke. Left-sided numbness. COMPARISON STUDY: Head CT December 07, 2016. TECHNIQUE: Utilizing a 1.5 Sandhya magnet and dedicated coil, multiplanar, multiecho imaging of the brain was performed without IV contrast. FINDINGS: There are no areas of restricted diffusion. No acute intracranial hemorrhage, midline shift or mass effect is present. Ventricular system is normal. Basilar cisterns are patent. There are no extra-axial collections. Several old lacunar infarcts are noted, including infarcts within the caudate nuclei and corpus callosum. There is a mucous retention cyst within the left maxillary sinus. Calvarial signal is normal. Scattered white matter T2 hyperintense foci suggest small vessel disease. No intracranial mass is identified on this unenhanced exam. IMPRESSION: No acute intracranial findings. Several old lacunar infarcts and mild to moderate small vessel disease. Electronically signed by: Isaiah Higgins M.D. 12/08/2016 2:19 PM Dictated Date/Time: 12/08/2016 2:14 PM
--- NOTE | 2016-12-08 14:29 | DIAGNOSTIC IMAGING REPORT ---
MRA OF THE INTRACRANIAL CIRCULATION WITHOUT CONTRAST CLINICAL HISTORY: Stroke. Left-sided numbness. COMPARISON STUDY: MRA of the intracranial circulation June 25, 2017. TECHNIQUE: Utilizing a 1.5 Sandhya magnet and 3-D [id number]-ey-tptcan technique, unenhanced MRA of the intracranial circulation was obtained. FINDINGS: The bilateral M1, M2, A1 and A2 segments are patent. There is no abrupt vessel cut off. There is no aneurysm within the intracranial circulation. Posterior circulation is also intact. IMPRESSION: Unremarkable MRA of the intracranial circulation. Electronically signed by: Isaiah Higgins M.D. 12/08/2016 2:28 PM Dictated Date/Time: 12/08/2016 2:19 PM
--- NOTE | 2016-12-08 14:33 | DIAGNOSTIC IMAGING REPORT ---
MRA OF THE NECK WITH AND WITHOUT CONTRAST CLINICAL HISTORY: Stroke. Left-sided numbness. COMPARISON STUDY: Carotid ultrasound December 17, 2010. TECHNIQUE: Unenhanced and contrast-enhanced MRA of the neck was performed. Injection of 10 mL of Magnevist IV was uneventful. NASCET criteria were utilized to estimate the degree of carotid stenosis. FINDINGS: There is no significant stenosis within the bilateral common carotid, internal carotid and vertebral arteries. Major vasculature of the neck is patent. There is no evidence for dissection. IMPRESSION: Normal MRA of the neck. Electronically signed by: Isaiah Higgins M.D. 12/08/2016 2:31 PM Dictated Date/Time: 12/08/2016 2:30 PM
--- NOTE | 2016-12-08 19:53 | Progress Note ---
Subjective Date of Service: December 08, 2016. Subjective Pt evaluation today including: conversation w/ patient, physical exam, chart review, lab review, review of studies (MRI brain, MRA brain; stress echo from the office 10/2016 NEGATIVE for thrombus, NEGATIVE for valve issues), review of inpatient medication list Pain: none PO Intake: normal; no dysphagia Voiding: no voiding problems paresthesias of tongue resolved; leg paresthesias also resolved; left arm numbness remains but that, too, is better denies that turning the neck/head makes the paresthesias worse denies weakness of left arm or leg mentions she had stress echo in October of this year that was normal tele normal since admission Problem List Medical Problems: (1) Asthma Status: Chronic (2) CVA (cerebral vascular accident) Status: Acute (3) Diabetes Status: Chronic (4) Kidney disease Status: Chronic Review of Systems Constitutional: No fever Cardiac: No chest pain Abdomen: No pain Objective Vital Signs Date Time Temp Pulse Resp B/P Pulse Ox O2 Delivery O2 Flow Rate FiO2 12/08/16 16:00 Room Air 12/08/16 15:50 36.6 81 20 121/68 95 Room Air 12/08/16 12:00 Room Air 12/08/16 11:26 36.7 73 16 163/75 100 Room Air 12/08/16 09:42 72 98 12/08/16 08:00 Room Air 12/08/16 07:51 36.6 72 18 111/72 98 12/08/16 04:38 36.9 78 17 124/72 97 Room Air 12/08/16 04:00 97 Room Air 12/08/16 00:33 78 20 124/93 97 Room Air 12/07/16 23:43 74 20 143/61 98 Room Air 12/07/16 23:37 98 Room Air 12/07/16 23:30 82 16 158/73 100 Room Air 12/07/16 23:11 76 16 152/63 12/07/16 23:07 76 16 149/74 12/07/16 23:02 83 12/07/16 22:43 36.6 77 18 165/71 98 Room Air Physical Exam General Appearance: no apparent distress, + pertinent finding (fluent speech, no facial droop ) ENT: pharynx normal Neck: supple (full passive ROM), no JVD Respiratory/Chest: lungs clear, no respiratory distress, no accessory muscle use Cardiovascular: regular rate, rhythm, no gallop, no murmur Abdomen: normal bowel sounds, non tender, soft, no organomegaly Extremities: no pedal edema Neurologic/Psychiatric: alert, oriented x 3, + pertinent finding (strength 5/5 x 4 extremities; no facial droop) Skin: no rash Laboratory Results Last 24 Hours Test 12/07/16 23:03 12/07/16 23:29 12/08/16 00:14 12/08/16 06:44 Bedside Glucose 278 mg/dl 126 mg/dl White Blood Count 5.22 K/uL Red Blood Count 4.58 M/uL Hemoglobin 13.9 g/dL Hematocrit 42.5 % Mean Corpuscular Volume 92.8 fL Mean Corpuscular Hemoglobin 30.3 pg Mean Corpuscular Hemoglobin Concent 32.7 g/dl Platelet Count 284 K/uL Mean Platelet Volume 10.0 fL Neutrophils (%) (Auto) 58.4 % Lymphocytes (%) (Auto) 26.6 % Monocytes (%) (Auto) 12.1 % Eosinophils (%) (Auto) 2.1 % Basophils (%) (Auto) 0.6 % Neutrophils # (Auto) 3.05 K/uL Lymphocytes # (Auto) 1.39 K/uL Monocytes # (Auto) 0.63 K/uL Eosinophils # (Auto) 0.11 K/uL Basophils # (Auto) 0.03 K/uL RDW Standard Deviation 44.7 fL RDW Coefficient of Variation 13.1 % Immature Granulocyte % (Auto) 0.2 % Immature Granulocyte # (Auto) 0.01 K/uL Prothrombin Time 10.2 SECONDS Prothromb Time International Ratio 1.0 Activated Partial Thromboplast Time 25.3 SECONDS Partial Thromboplastin Ratio 1.0 Sodium Level 143 mmol/L Potassium Level mmol/L 4.0 mmol/L Chloride Level 106 mmol/L Carbon Dioxide Level 29 mmol/L Anion Gap 8.0 mmol/L Blood Urea Nitrogen 11 mg/dl Creatinine 1.10 mg/dl Est Creatinine Clear Calc Drug Dose 71.0 ml/min Estimated GFR () 65.0 Estimated GFR (Non- 56.1 BUN/Creatinine Ratio 10.2 Random Glucose 275 mg/dl Calcium Level 9.0 mg/dl Total Creatine Kinase U/L 58 U/L Creatine Kinase MB 0.6 ng/ml Creatine Kinase MB Ratio Troponin I < 0.015 ng/ml Test 12/08/16 16:29 Bedside Glucose 329 mg/dl Assessment and Plan 56yo female - 1. paresthesias left side of body - concern of TIA vs stroke - work-up thus far negative. no evidence of stroke on MRI brain. MRA head/neck NORMAL - no stenosis of any vessel. she reports that some of the numbness traveled from the neck down to the fingers of the left hand; cannot r/o c-spine DJD w/ radiculopathy, but again most of the left side of her body was affected so this is unlikely. appreciate neuro evaluation. cont aggrenox for secondary stroke prevention. check lipids in AM keep on telemetry to exclude a. fib. office records reviewed -- stress echo from 10/2016 without atrial thrombus or any other source of embolus. 2. uncontrolled T2DM - patient on insulin pump. Office records reviewed - 12midnight to 9am basal rate recently increased. Fasting glucose this am normal. Pre-prandial FSBS high. Increase carb ratio from 1:8 to 1:6. 3. KRAIG - CPAP. 4. HTN - BPs controlled. 5. hyperlipidemia - check lipids in am, cont statin. 6. hypothyroidism - TSH compensated; cont synthroid same dose. 7. DVT proph - heparin anticipate d/c home tomorrow cleared by PT for home but they have recommended outpatient physical therapy Discharge planning: home
[2016-12-08] MEDS ORDERED: ATORVASTATIN 40 MG TAB PO SCH (21:00)
[2016-12-08] MEDS ORDERED: MONTELUKAST SOD 10 MG TAB PO SCH (21:00)
[2016-12-08] MEDS ORDERED: PRAMIPEXOLE DIHYDROCHLORIDE 0.25MG TAB PO SCH (21:00)
[2016-12-09 03:57] VITALS: BP 118/69; PULSE 81; TEMP 37.1; O2SAT 97
[2016-12-09] MEDS: LEVOTHYROXINE 125 MCG TAB PO SCH (05:53)
[2016-12-09] MEDS: HEPARIN SOD 5000 UNIT/0.5 ML CARP SQ SCH (05:54)
[2016-12-09] MEDS: NovoLOG INSULIN PUMP SCH (07:00)
[2016-12-09 07:23] LABS: ESTIMATED AVERAGE GLUCOSE 189 mg/dl; HA1C FLAG Normal (Normal)
[2016-12-09 07:24] LABS: BUN/CREATININE RATIO 13.4 (10-20); CALCIUM 9.2 mg/dl (8.5-10.1); CREATININE 1.1 mg/dl (0.60-1.20); POTASSIUM 4.4 mmol/L (3.5-5.1)
[2016-12-09 07:27] LABS: CHOLESTEROL/HDL RATIO 2.4
[2016-12-09] MEDS: FLUTICASONE HFA 110MCG INHALER INH SCH (07:57)
[2016-12-09] MEDS: DIPYRIDAMOLE/ASPIRIN CAP PO SCH (07:57)
[2016-12-09] MEDS: PANTOprazole SOD 40 MG TAB PO SCH (07:58)
[2016-12-09] MEDS: BuPROPion SR 100 MG TABCR PO SCH (07:58)
[2016-12-09] MEDS: DULOXETINE HCL 60 MG CAP PO SCH (07:58)
[2016-12-09 08:08] VITALS: BP 139/72; PULSE 75; TEMP 36.6; O2SAT 97
--- NOTE | 2016-12-09 08:33 | Neurology Progress Notes ---
Neurology Progress Note Date of Service December 09, 2016. Subjective The patient tells me that her left-sided numbness was much improved yesterday and this morning when she woke it was resolved. The onset of the numbness was at 2030 hours on 12-07-16. Patient denies pain, headache, dizziness, weakness, numbness, speech problems, or confusion. MRI of the brain revealed no new stroke. She does have old small vessel ischemic changes" from past events. MR angiography of the head and neck were unremarkable. Glucose is morning was 147 and cholesterol was 139. Lipid profile was good. Her blood pressure was improved. Objective Date Time Temp Pulse Resp B/P Pulse Ox O2 Delivery O2 Flow Rate FiO2 12/09/16 08:08 36.6 75 19 139/72 97 Room Air 12/09/16 04:00 Room Air 12/09/16 03:57 37.1 81 17 118/69 97 Room Air 12/08/16 23:59 97 Room Air 12/08/16 23:56 37.1 78 17 117/71 99 Room Air 12/08/16 20:00 Room Air 12/08/16 19:50 36.7 78 18 123/75 97 Room Air 12/08/16 16:00 Room Air 12/08/16 15:50 36.6 81 20 121/68 95 Room Air 12/08/16 12:00 Room Air 12/08/16 11:26 36.7 73 16 163/75 100 Room Air 12/08/16 09:42 72 98 Last 24 Hours Test 12/08/16 16:29 12/08/16 20:38 12/09/16 06:04 Bedside Glucose 329 mg/dl 163 mg/dl Sodium Level 141 mmol/L Potassium Level 4.4 mmol/L Chloride Level 105 mmol/L Carbon Dioxide Level 30 mmol/L Anion Gap 6.0 mmol/L Blood Urea Nitrogen 15 mg/dl Creatinine 1.10 mg/dl Est Creatinine Clear Calc Drug Dose 71.7 ml/min Estimated GFR () 65.0 Estimated GFR (Non- 56.1 BUN/Creatinine Ratio 13.4 Random Glucose 147 mg/dl Calcium Level 9.2 mg/dl Triglycerides Level 104 mg/dl Cholesterol Level 139 mg/dl HDL Cholesterol 58 mg/dl LDL Cholesterol, Calculated 60 mg/dl VLDL Cholesterol, Calculated 21 mg/dl Cholesterol/HDL Ratio 2.4 Imaging: MRI OF THE BRAIN WITHOUT CONTRAST CLINICAL HISTORY: Stroke. Left-sided numbness. COMPARISON STUDY: Head CT December 07, 2016. TECHNIQUE: Utilizing a 1.5 Sandhya magnet and dedicated coil, multiplanar, multiecho imaging of the brain was performed without IV contrast. FINDINGS: There are no areas of restricted diffusion. No acute intracranial hemorrhage, midline shift or mass effect is present. Ventricular system is normal. Basilar cisterns are patent. There are no extra-axial collections. Several old lacunar infarcts are noted, including infarcts within the caudate nuclei and corpus callosum. There is a mucous retention cyst within the left maxillary sinus. Calvarial signal is normal. Scattered white matter T2 hyperintense foci suggest small vessel disease. No intracranial mass is identified on this unenhanced exam. IMPRESSION: No acute intracranial findings. Several old lacunar infarcts and mild to moderate small vessel disease. Electronically signed by: Isaiah Higgins M.D. 12/08/2016 2:19 PM Exam: She is awake and alert. Her speech is normal without aphasia or dysarthria. Mood and affect are normal and appropriate. Thought processes seem intact. Extraocular eye muscles are intact without nystagmus. There is no facial droop. Tongue is midline. With outstretched arms, there is no drift. There is no resting, postural, or action tremors. There is good facility in the hands bilaterally. Motor strength is 5/5 symmetrical in all 4 limbs both proximally and distally bilaterally. Reflexes are 2/4 in the arms and 1/4 in the quadriceps. Achilles tendon reflexes are absent bilaterally. Toes are downgoing with plantar stimulation bilaterally. Current Inpatient Medications Medications (Trade) Dose Ordered Sig/Aram Route Start Time Stop Time Status Last Admin Dose Admin Miscellaneous Information (Pharmacist Discharge Med Rec Consult) 1 ea UD PRN N/A 12/08/16 00:00 01/07/17 00:00 Atorvastatin Calcium (Lipitor Tab) 80 mg HS PO 12/08/16 21:00 01/07/17 20:59 12/08/16 20:45 80 MG Bupropion HCl (Wellbutrin-Sr Tab) 200 mg BID PO 12/08/16 09:00 01/07/17 08:59 12/09/16 07:58 200 MG Dipyridamole/ Aspirin (Aggrenox 200MG/ 25MG Cap) 1 cap BID PO 12/08/16 09:00 01/07/17 08:59 12/09/16 07:57 1 CAP Duloxetine HCl (Cymbalta Cap) 60 mg BID PO 12/08/16 09:00 01/07/17 08:59 12/09/16 07:58 60 MG Fluticasone Propionate (Flovent Hfa 110MCG Inhaler) 1 puffs BID INH 12/08/16 09:00 01/07/17 08:59 12/09/16 07:57 1 PUFFS Insulin Aspart (novoLOG INSULIN PUMP) 1 ea ACHS N/A 12/08/16 07:00 01/07/17 06:59 12/09/16 07:00 1 EA Levothyroxine Sodium (Synthroid Tab) 125 mcg DAILYBB PO 12/08/16 06:00 01/07/17 05:59 12/09/16 05:53 125 MCG Montelukast Sodium (Singulair Tab) 10 mg HS PO 12/08/16 21:00 01/07/17 20:59 12/08/16 20:45 10 MG Pantoprazole Sodium (Protonix Tab) 40 mg QAM PO 12/08/16 09:00 01/07/17 08:59 12/09/16 07:58 40 MG Pramipexole Dihydrochloride (miraPEX TAB) 0.5 mg HS PO 12/08/16 21:00 01/07/17 20:59 12/08/16 20:44 0.5 MG Miscellaneous Information (Order Awaiting Action) 1 ea QS N/A 12/08/16 08:00 01/07/17 07:59 Heparin Sodium (Porcine) (Heparin Sq 5000 Unit/0.5ml) 5,000 unit Q8H SQ 12/08/16 06:00 01/07/17 05:59 12/09/16 05:54 5,000 UNIT Acetaminophen (Tylenol Tab) 650 mg Q4H PRN PO 12/08/16 00:15 01/07/17 00:14 Al Hydrox/Mg Hydrox/Simethicone (Maalox Max Susp) 15 ml Q4H PRN PO 12/08/16 00:15 01/07/17 00:14 Magnesium Hydroxide (Milk Of Magnesia Susp) 30 ml Q12H PRN PO 12/08/16 00:15 01/07/17 00:14 Ondansetron HCl (Zofran Inj) 4 mg Q6H PRN IV 12/08/16 00:15 01/07/17 00:14 Polyethylene (Miralax Powder Packet) 17 gm DAILY PRN PO 12/08/16 00:15 01/07/17 00:14 Glucose (Glucose 40% Gel) 15-30 GRAMS 15 GRAMS... UD PRN PO 12/08/16 03:30 01/07/17 03:29 Glucose (Glucose Chew Tab) 4-8 Tablets 4 Tabl... UD PRN PO 12/08/16 03:30 01/07/17 03:29 Dextrose (Dextrose 50% 50ML Syringe) 25-50ML OF 50% DW IV FOR... UD PRN IV 12/08/16 03:30 01/07/17 03:29 Glucagon (Glucagon Inj) 1 mg UD PRN SQ 12/08/16 03:30 01/07/17 03:29 Insulin Aspart (novoLOG ASPART) SLIDING SCALE PRN PRN SC 12/08/16 03:30 01/07/17 03:29 Gadobutrol (Gadavist) 10 mmol UD PRN IV 12/08/16 14:15 12/12/16 14:14 Impression 1. Episode of left sided numbness lasting 24 hours or so, consistent with a right hemispheric TIA. This may have been a thalamic TIA. Currently she has no focal neurologic findings or deficits. She has multiple risk factors for stroke including multiple previous strokes of small vessel ischemic nature, Hypertension, and diabetes. She has been fairly stable on Aggrenox. She tells me she has missed a few doses recently. 2. Significant juvenile onset diabetes, insulin-dependent, with fairly reasonable control overall. 3. History of hypertension, improved. 4. Significant polyneuropathy secondary to diabetes. This is stable. Plan 1. Continue Aggrenox 2. I see no need to change or add any medication at this time. There is no indication for using Aggrenox plus Plavix from a cerebrovascular standpoint. 3. I see no need for additional neurologic testing at this time. I can follow-up as an outpatient in the next 2 weeks or so. I spoke with Dr. Syed regarding this case including differential diagnosis and treatment options.
--- NOTE | 2016-12-09 09:44 | Discharge Instructions ---
Discharge Instructions Date of Service December 09, 2016. Admission Reason for Admission: Right sided TIA Discharge Discharge Diagnosis / Problem: Right sided TIA, resolving Discharge Goals Goal(s): Improve function, Improve disease control Activity Recommendations Activity Limitations: resume your previous activity Lifting Limitations: none Exercise/Sports Limitations: as tolerated May Resume Sexual Activity: when tolerated Shower/Bathe: no limitations Driving or Machine Use: no limitations . Instructions / Follow-Up Instructions / Follow-Up No medication changes, recommended by Dr. Walls In summary, you had a detailed work up including MRI brain, MR angiogram head and neck, CT head and chest x-ray. Only significant finding was prior lacunar infarcts on MRI brain. Your lipid panel shows excellent control of cholesterol with LDL of 60 and total cholesterol 139 Your HbA1c is elevated at 8.2 with an estimated average sugar of 189, continue to work on glucose control via pump, goal would be an A1c of < 7.5 FOLLOW UP - Dr. Walls in the neurology clinic within the next month - Dr. Shay in 5-7 days for hospital follow up, call to schedule an appointment Risk Factors for Stroke: You can reduce your chances of stroke by working with your medical provider to adopt a healthy lifestyle. Some specific ways to lower your chance of stroke are: * If you are a smoker, now is the time to stop smoking cigarettes * If you are diabetic, improve the control of your blood sugars * Avoid excessive amounts of alcohol * Control high blood pressure * Lose weight if you are overweight * Be sure to lead an active lifestyle * Eat a healthy diet low in salt, cholesterol and fat You should know about other risk factors for stroke that you are unable to control. These include: * Age 55 years or older * Male gender * Certain racial groups: , or / * Family History of Stroke, Mini stroke or Heart Attack * Sickle Cell Disease Follow Up: It is important for you to keep your follow up appointments with your medical provider. Current Hospital Diet Patient's current hospital diet: AHA Diet (Heart Healthy), Diabetes Type 2 Diet Discharge Diet Recommended Diet: AHA Diet (Heart Healthy), Diabetes Type 1 Diet Pending Studies Studies pending at discharge: no Laboratory Results Hemoglobin A1c Test 12/07/16 23:29 Range/Units Estimated Average Glucose 189 mg/dl Hemoglobin A1c 8.2 H 4.5-5.6 % Lipid Panel Test 12/09/16 06:04 Range/Units Triglycerides Level 104 0-150 mg/dl Cholesterol Level 139 0-200 mg/dl HDL Cholesterol 58 mg/dl Cholesterol/HDL Ratio 2.4 LDL Cholesterol, Calculated 60 mg/dl Medical Emergencies . Who to Call and When: Medical Emergencies: Call 911 immediately if you experience any of the following warning signs and symptoms of Stroke: * Sudden numbness or weakness of the face, arm or leg, especially on one side of the body * Sudden confusion, trouble speaking or understanding * Sudden trouble seeing in one or both eyes * Sudden trouble walking, dizziness, loss of balance or coordination * Sudden severe headache with no cause Do not delay calling 911 if you experience any warning signs or symptoms of a stroke. Delay in seeking medical attention may affect what treatments can be given to you. . Non-Emergent Contact Non-Emergency issues call your: Primary Care Provider, Neurologist Call Non-Emergent contact if: you have any medication questions . . "Provider Documentation" section prepared by Homer Syed. . Stroke Core Measures Reason no t-PA for Stroke: Treatment not indicated Reason no antithrom by day 2: Treatment provided - N/A Reason no antithrom at D/C: Treatment provided - N/A Reason no statin at D/C: Treatment provided - N/A Reason no anticoag w/a fib: Treatment not indicated VTE Core Measure Inpt VTE Proph given/why not?: Unfractionated heparin SQ [place] Drug Monitoring Program Search Results: no issues identified
[2016-12-09 09:50] VITALS: BP 139/72; PULSE 75; TEMP 36.6; O2SAT 97
--- NOTE | 2016-12-09 09:54 | Discharge Summary ---
Discharge Summary Date of Service December 09, 2016. Discharge Summary Admission Date: December 08, 2016 at 00:11 Discharge Date: December 09, 2016 Discharge Disposition: Home Principal Diagnosis: Right sided TIA Problems/Secondary Diagnoses: DM type I, insulin pump dependent Dyslipidemia Immunizations: Have You Had Influenza Vaccine: N/A History of Tetanus Vaccine?: Yes History of Pneumococcal: Yes Pneumococcal Date: Dec 17, 2005 History of Hepatitis B Vaccine: Unknown Procedures: MRI brain MRA head and neck Consultations: Neurology Medication Reconciliation Continued Medications: Alendronate Sodium (Alendronate Sodium) 35 Mg Tab 35 MG PO WK FRIDAYS AM Atorvastatin (Lipitor) 40 Mg Tab 40 MG PO HS, TAB Bupropion Hcl (Wellbutrin Sr) 200 Mg Tab 200 MG PO BID, TAB Cholecalciferol (Vitamin D) 1,000 Inter.unit Tab 2 TABS PO QAM Cyanocobalamin (Cyanocobalamin) 1,000 Mcg/Ml Inj 1 ML IM MONTHLY Dipyridamole/Aspirin (Aggrenox 25-200 mg) 1 Cap Cap 1 CAP PO BID Duloxetine HCl (Cymbalta) 60 Mg Cap 60 MG PO BID Fluticasone Propionate Hfa (Flovent Hfa 110MCG Inhaler) 110 Mcg/ Aer 2 PUFF INH BID, INH Furosemide (Furosemide) 40 Mg Tab 40 MG PO QAM PRN for PRN Insulin Aspart (novoLOG INSULIN PUMP ) 1 Ea Inj 1 EA N/A UD, EA Levothyroxine Sodium (Synthroid) 125 Mcg Tab 125 MCG PO QAM Lisinopril (Lisinopril) 2.5 Mg Tab 2.5 MG PO HS Montelukast Sodium (Singulair) 10 Mg Tab 10 MG PO HS, TAB Pantoprazole (Protonix) 40 Mg Tab 40 MG PO QAM Pramipexole Dihydrochloride (Mirapex) 0.25 Mg Tab 2 TABS PO HS Pyridoxine Hcl (Vitamin B 6) 50 Mg Tab 1 TAB PO QAM Trazodone Hcl (Trazodone) 50 Mg Tab 25 MG PO HS [Maxair] () 2 PUFFS INH QID PRN for Shortness of Breath Discharge Exam Patient feeling well, no symptoms reported this AM. Sensation intact on her left side. Strength equal bilaterally. Ambulating well, no loss of balance. Discussed with Dr. Walls this AM, clear for d/c from neurologic standpoint, will follow up in clinic. Review of Systems: Constitutional: No chills, No fatigue, No fever, No problem reported, No sweats, No weakness, No weight loss Eyes: No diplopia, No discharge, No eye pain, No problem reported, No redness, No worsening of vision ENT: No dental problems, No hearing loss, No nasal symptoms, No problem reported, No sore throat, No tinnitus, No trouble swallowing, No unusual epistaxis Respiratory: No cough, No dyspnea at rest, No dyspnea on exertion, No hemoptysis, No problem reported, No shortness of breath, No sputum, No wheezing Cardiovascular: No PND, No chest pain, No claudication, No edema, No orthopnea, No palpitations, No problem reported Abdomen: No GI bleeding, No constipation, No diarrhea, No nausea, No pain, No problem reported, No vomiting Musculoskeletal: No calf pain, No joint pain, No muscle pain, No problem reported, No swelling Genitourinary - Female: No dysuria, No urinary frequency, No urinary incontinence, No urinary urgency Neurologic: No balance problems, No memory loss, No numbness/tingling, No paralysis, No problem reported, No vertigo, No weakness Psychiatric: No anhedonism, No anxiety, No depression symptoms, No insomnia , No problem reported, No substance abuse Endocrine: No excessive thirst, No excessive urination, No fatigue, No problem reported Hematologic / Lymphatic: No abnormal bleeding/bruising, No clotting problems , No night sweats, No problem reported, No swollen lymph nodes Integumentary: No bleeding, No color change, No itch, No new/changing skin lesions, No problem reported, No rash Physical Exam: General Appearance: WD/WN, no apparent distress Eyes: normal inspection, EOMI, sclerae normal ENT: normal ENT inspection, hearing grossly normal, pharynx normal Neck: supple, no adenopathy, no JVD, trachea midline Respiratory/Chest: chest non-tender, lungs clear, normal breath sounds, no respiratory distress, no accessory muscle use Cardiovascular: regular rate, rhythm, no edema, no gallop, no JVD, no murmur , normal peripheral pulses Abdomen / GI: normal bowel sounds, non tender, soft, no organomegaly Extremities: normal inspection, no calf tenderness, normal capillary refill , no pedal edema, normal range of motion 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 1. paresthesias left side of body - diagnosed as TIA per neurology, no evidence of ischemia on imaging no evidence of stroke on MRI brain. MRA head/neck NORMAL - no stenosis of any vessel. she reports that some of the numbness traveled from the neck down to the fingers of the left hand; cannot r/o c-spine DJD w/ radiculopathy, but again most of the left side of her body was affected so this is unlikely. appreciate neuro evaluation. cont aggrenox for secondary stroke prevention. lipid panel - LDL 60, at goal, continue Lipitor 40mg keep on telemetry to exclude a. fib. - no arrhythmia office records reviewed -- stress echo from 10/2016 without atrial thrombus or any other source of embolus. 2. uncontrolled T2DM - patient on insulin pump. Office records reviewed - 12midnight to 9am basal rate recently increased. Fasting glucose readings normal. Pre-prandial FSBS high. d/w patient, she follows closely with Dr. Emery, her A1c as outpatient was in the 9's so 8.2 is actually improvement will continue current settings and follow up with endocrinology, goal would be 7.5 with strokes 3. KRAIG - CPAP. 4. HTN - BPs controlled. 5. hyperlipidemia - Lipitor 40mg daily 6. hypothyroidism - TSH compensated; cont synthroid same dose. 7. DVT proph - heparin Total Time Spent: Greater than 30 minutes This includes examination of the patient, discharge planning, medication reconciliation, and communication with other providers. Discharge Instructions Please refer to the electronic Patient Visit Report (Discharge Instructions) for additional information. Follow-Up Dr. Shay in one week Dr. Walls in one month Dr. Emery as previously scheduled Additional Copies To Adolfo Shay M.D.; Marcello Walls M.D.; Nilesh Emery M.D.
[2016-12-09 13:00] VITALS: Ht 172.7 cm; Wt 103.0 kg
== END 2016-12-09 11:19 | disposition home or self-care (01) | DRG 69 ==
LOC: ENRESERVTM → ENRESERVDT → C.EDB 22:42 → C.2T 12-08 00:11
PROVIDERS: ADMIT Internal Medicine; ATTEND Internal Medicine
DX: G45.9 Transient cerebral ischemic attack, unspecified (principal); R20.0 Anesthesia of skin; I69.398 Other sequelae of cerebral infarction; R20.9 Unspecified disturbances of skin sensation; E11.65 Type 2 diabetes mellitus with hyperglycemia; I12.9 Hypertensive chronic kidney disease with stage 1 through stage 4 chronic kidney disease, or unspecified chronic kidney disease; E11.22 Type 2 diabetes mellitus with diabetic chronic kidney disease; N18.9 Chronic kidney disease, unspecified; E11.42 Type 2 diabetes mellitus with diabetic polyneuropathy; E11.319 Type 2 diabetes mellitus with unspecified diabetic retinopathy without macular edema; J45.909 Unspecified asthma, uncomplicated; E78.5 Hyperlipidemia, unspecified; E03.9 Hypothyroidism, unspecified; G25.81 Restless legs syndrome; G47.33 Obstructive sleep apnea (adult) (pediatric); F32.9 Major depressive disorder, single episode, unspecified; Z99.89 Dependence on other enabling machines and devices; Z96.41 Presence of insulin pump (external) (internal); Z79.4 Long term (current) use of insulin; Z79.01 Long term (current) use of anticoagulants; Z79.51 Long term (current) use of inhaled steroids; Z79.899 Other long term (current) drug therapy

== ENCOUNTER → 2016-12-11 | Outpatient (CLI) | payer BC ==
--- NOTE | 2016-12-11 14:11 | MAMMOGRAPHY REPORT ---
BILATERAL DIGITAL SCREENING MAMMOGRAM TOMOSYNTHESIS WITH CAD: 12/11/2016 CLINICAL HISTORY: Routine screening. Patient has no complaints. TECHNIQUE: Breast tomosynthesis in addition to standard 2D mammography was performed. Current study was also evaluated with a Computer Aided Detection (CAD) system. COMPARISON: Comparison is made to exams dated: 12/08/2015 mammogram, 12/06/2014 mammogram, 11/30/2013 mammogram, 06/19/2011 mammogram, 05/16/2009 mammogram, and 12/30/2005 mammogram - [facility]. BREAST COMPOSITION: There are scattered areas of fibroglandular density in both breasts. FINDINGS: The parenchymal pattern is unchanged. No developing mass, architectural distortion or clu ster of suspicious microcalcifications is seen in either breast. IMPRESSION: ACR BI-RADS CATEGORY 2: BENIGN There is no mammographic evidence of malignancy. A 1 year screening mammogram is recommended. The p atient will receive written notification of the results. Approximately 10% of breast cancers are not detected with mammography. A negative mammographic repor t should not delay biopsy if a clinically suggestive mass is present. Leeann Garnett M.D. ay/:12/11/2016 12:22:18 Pool Coordinator: Marielos GARCIA(Fariba)(M), [facility] letter sent: Normal 1/2 BI-RADS Code: ACR BI-RADS Category 2: Benign
== END | disposition home or self-care (01) ==
LOC: C.MAMM 11:11
PROVIDERS: ATTEND Obstetrics & Gynecology
DX: Z12.31 Encounter for screening mammogram for malignant neoplasm of breast (principal)

== ENCOUNTER → 2017-01-27 | Outpatient (CLI) | payer BC ==
[2017-01-27 15:18] LABS: ESTIMATED AVERAGE GLUCOSE 192 mg/dl; HA1C FLAG Normal (Normal)
== END | disposition home or self-care (01) ==
LOC: C.LAB1850 14:01
PROVIDERS: ATTEND Internal Medicine Pulmonary Disease
DX: E10.65 Type 1 diabetes mellitus with hyperglycemia (principal); G25.81 Restless legs syndrome

== ENCOUNTER → 2017-03-28 | Outpatient (CLI) | payer BC ==
[2017-03-28 16:37] LABS: BASO % 0.7 %; BASO ABS # 0.03 K/uL (0-0.2); COMPLETE YES; EOS % 4.5 %; IG% 0.2 %; LYMPH % 27.7 %; LYMPH ABS # 1.18 K/uL (1.2-3.4); MEAN CELL VOLUME 93.5 fL (80-100); MEAN CORPUSCULAR HEMOGLOBIN 31.1 pg (25-34); MEAN CORPUSCULAR HGB CONC 33.3 g/dl (32-36); MEAN PLATELET VOLUME 10.6 fL (7.4-10.4); MONO % 13.1 %; NEUT % 53.8 %; PLATELET COUNT 222 K/uL (130-400); RED BLOOD COUNT 4.28 M/uL (4.2-5.4); WHITE BLOOD COUNT 4.26 K/uL (4.8-10.8)
[2017-03-28 16:44] LABS: BLOOD UREA NITROGEN 12 mg/dl (7-18); BUN/CREATININE RATIO 10.6 (10-20); CALCIUM 9.3 mg/dl (8.5-10.1); CARBON DIOXIDE 26 mmol/L (21-32); CHLORIDE 103 mmol/L (98-107); GLUCOSE 169 mg/dl (70-99); SODIUM 136 mmol/L (136-145)
[2017-03-28 16:55] LABS: ALB/GLOB RATIO 1.1 (0.9-2); ALKALINE PHOSPHATASE 83 U/L (45-117); ALT/SGPT 29 U/L (12-78); AST/SGOT 27 U/L (15-37)
== END | disposition home or self-care (01) ==
LOC: C.LABBFT 12:22
PROVIDERS: ATTEND Internal Medicine
DX: E03.9 Hypothyroidism, unspecified (principal); D50.9 Iron deficiency anemia, unspecified; R53.83 Other fatigue; E78.5 Hyperlipidemia, unspecified; E06.3 Autoimmune thyroiditis; I10 Essential (primary) hypertension; E55.9 Vitamin D deficiency, unspecified

== ENCOUNTER → 2017-04-02 | Outpatient (CLI) | payer BC | END | disposition home or self-care (01) | LOC: C.PAPS 15:09 | PROVIDERS: ATTEND Obstetrics & Gynecology | DX: Z01.419 Encounter for gynecological examination (general) (routine) without abnormal findings (principal) ==

== ENCOUNTER → 2017-04-08 | Outpatient (CLI) | payer BC ==
--- NOTE | 2017-04-08 16:06 | DIAGNOSTIC IMAGING REPORT ---
CT SINUSES-MAXILLOFACIAL W/O CLINICAL HISTORY: Nasal congestion difficulty breathing. COMPARISON STUDY: None. TECHNIQUE: CT scan of the paranasal sinuses was performed in the axial plane. Coronal reconstructed images were obtained and reviewed. A dose lowering technique was utilized adhering to the principles of ALARA. CT DOSE: 241.10 mGycm FINDINGS: There is a small calcification within the posterior aspect of the right globe. No retroconal masses are visualized. There is no hydrocephalus. The mastoid air cells are well aerated. Middle ear cavities are symmetrically aerated. The frontal ethmoid maxillary and sphenoid sinuses are clear. There is a left maxillary sinus 13 mm inflammatory polyp/retention cyst. There is minimal nasal septal deviation to the left. No nasal cavity masses are visualized. The ostiomeatal units appear patent bilaterally. Ethmoid infundibula and frontal recesses are patent. IMPRESSION: 1. Small left maxillary sinus inflammatory polyp/retention cyst 2. No evidence of acute sinusitis 3. The ostiomeatal units appear patent bilaterally 4. No nasal cavity masses are visualized. Electronically signed by: Mustapha Crawford M.D. 04/08/2017 4:05 PM Dictated Date/Time: 04/08/2017 4:02 PM
== END | disposition home or self-care (01) ==
LOC: C.CTS 15:28
PROVIDERS: ATTEND Internal Medicine
DX: R09.81 Nasal congestion (principal); J34.1 Cyst and mucocele of nose and nasal sinus

== ENCOUNTER → 2017-09-16 | Outpatient (CLI) | payer OTHER ==
[~2017-09-16] MED LIST changes: -ALEN1TAB21 PO; +ALEN35TA42 PO
[2017-09-16 17:39] LABS: BASO % 0.9 %; BASO ABS # 0.03 K/uL (0-0.2); EOS % 1.7 %; EOS ABS # 0.06 K/uL (0-0.5); HEMATOCRIT 37.8 % (37-47); HEMOGLOBIN 12.5 g/dL (12.0-16.0); LYMPH % 35.1 %; LYMPH ABS # 1.23 K/uL (1.2-3.4); MEAN CELL VOLUME 93.1 fL (80-100); MEAN CORPUSCULAR HEMOGLOBIN 30.8 pg (25-34); MEAN CORPUSCULAR HGB CONC 33.1 g/dl (32-36); MEAN PLATELET VOLUME 9.8 fL (7.4-10.4); MONO % 12.6 %; MONO ABS # 0.44 K/uL (0.11-0.59); NEUT % 49.7 %; NEUT ABS # 1.74 K/uL (1.4-6.5); PLATELET COUNT 267 K/uL (130-400); RED CELL DISTRIBUTION WIDTH CV 13.2 % (11.5-14.5)
[2017-09-16 17:48] LABS: ALBUMIN 3.7 gm/dl (3.4-5.0); ALT/SGPT 30 U/L (12-78); BLOOD UREA NITROGEN 10 mg/dl (7-18); CALCIUM 9.3 mg/dl (8.5-10.1); CARBON DIOXIDE 28 mmol/L (21-32); CHOLESTEROL 115 mg/dl (0-200); CREATININE 1.02 mg/dl (0.60-1.20); GLUCOSE 145 mg/dl (70-99); SODIUM 137 mmol/L (136-145)
[2017-09-16 17:57] LABS: ALKALINE PHOSPHATASE 70 U/L (45-117); AST/SGOT 23 U/L (15-37); LDL CHOLESTEROL CALCULATED 44 mg/dl; TRANSFERRIN 148 mg/dl (200-360)
[2017-09-17 07:02] LABS: HEMOGLOBIN A1C 7.3 % (4.5-5.6)
== END | disposition home or self-care (01) ==
LOC: C.LABBFT 13:12
PROVIDERS: ATTEND Internal Medicine
DX: E10.69 Type 1 diabetes mellitus with other specified complication (principal); G25.81 Restless legs syndrome; G47.33 Obstructive sleep apnea (adult) (pediatric); G47.61 Periodic limb movement disorder; E10.65 Type 1 diabetes mellitus with hyperglycemia; D72.819 Decreased white blood cell count, unspecified; E55.9 Vitamin D deficiency, unspecified; D50.9 Iron deficiency anemia, unspecified; E78.5 Hyperlipidemia, unspecified; E03.9 Hypothyroidism, unspecified

== ENCOUNTER → 2017-09-18 | Outpatient (CLI) | payer OTHER | END | disposition home or self-care (01) | LOC: C.LABBFT 15:01 | PROVIDERS: ATTEND Internal Medicine | DX: E03.9 Hypothyroidism, unspecified (principal) ==

== ENCOUNTER 2018-03-03 22:46 | Emergency (ER) | payer OTHER ==
[~2018-03-03] VITALS: Ht 170.2 cm; Wt 93.0 kg
[2018-03-03 22:48] VITALS: TEMP 36.6; Ht 170.2 cm; Wt 93.0 kg
[2018-03-03] MEDS ORDERED: SODIUM CHLORIDE 0.9% 1000ML 1,000 ML IV STA (23:08)
[2018-03-03] MEDS ORDERED: SODIUM CHLORIDE 0.9% 1000ML 1,000 ML IV ONE (23:08)
--- NOTE | 2018-03-03 23:12 | EMERGENCY ROOM VISIT NOTE ---
History Report prepared by Peter: Marcel Reddy Under the Supervision of: Dr. Dayday Collins M.D. First contact with patient: 22:54 Chief Complaint: PALPITATIONS Stated Complaint: HEART RACING History of Present Illness The patient is a 57 year old female who presents to the Emergency Room with complaints of intermittent nausea beginning four days ago. The patient states she started to get sick on Friday. She reports she was nauseous and could not keep anything down whether it be liquids or pills. The patient notes she last vomited yesterday evening. She states she was given a prescription for Zofran last night by her PCP, and it helped with her nausea. The patient reports she is able to keep things down now, but it still feels like she is nauseous. She notes she has also been experiencing diarrhea. The patient states she had chest pain on Friday that felt like gas and radiated to her back. She reports it did not last long and has been gone since. The patient notes she is also short of breath. She states she becomes dizzy and lightheaded when she stands up or looks around too quickly. The patient reports she feels her heart racing when she exerts herself. She notes a history of five strokes, and she has mild loss of sensation in the left side. The patient states she takes Dipyridamole and aspirin daily. She denies abdominal pain, eating anything unusual, black color in vomit or stool, blood in stool or vomit, heart history, stroke like symptoms , new numbness or weakness, trouble speaking or swallowing, trouble with walking , headache, trauma, injury, and fevers. The patient reports a history of Type I DM. She notes her sugars have been normal. Source of History: patient, spouse/significant other Onset: four days ago Quality: other (nausea) Timing: intermittent Modifying Factors (Relieving): other (Zofran) Associated Symptoms: + chest pain, + SOB, + vomiting, + back pain, No fevers , No headache, No abdominal pain, No weakness, No numbness Note: Associated symptoms: dizziness and lightheadedness Denies eating anything unusual, black color in vomit or stool, blood in stool or vomit, heart history, stroke like symptoms, trouble speaking or swallowing, trouble with walking Review of Systems As above. All other systems reviewed were negative unless otherwise stated in history. At least 10 were reviewed Past Medical & Surgical Medical Problems: (1) Asthma (2) Diabetes (3) Kidney disease Old medical records were reviewed. Nurse's notes were reviewed and I agree with. History of type 1 diabetes for over 40 years. Uses insulin pump and a CGM. History of CVA Family History Cancer Diabetes mellitus Gallbladder disease Heart disease Hypertension Kidney disease Kidney stones Social History Smoking Status: Never Smoker Alcohol Use: none Drug Use: none Marital Status: single Occupation Status: employed Current/Historical Medications Scheduled Alendronate Sodium (Alendronate Sodium), 35 MG PO WK Atorvastatin (Lipitor), 40 MG PO HS Bupropion Hcl (Wellbutrin Sr), 200 MG PO BID Cholecalciferol (Vitamin D), 2 TABS PO QAM Cyanocobalamin (Cyanocobalamin), 1 ML IM MONTHLY Dipyridamole/Aspirin (Aggrenox 25-200 mg), 1 CAP PO BID Duloxetine HCl (Cymbalta), 60 MG PO BID Fluticasone Propionate Hfa (Flovent Hfa 110MCG Inhaler), 2 PUFF INH BID Insulin Aspart (novoLOG INSULIN PUMP ), 1 EA N/A UD Levothyroxine Sodium (Synthroid), 125 MCG PO QAM Lisinopril (Lisinopril), 2.5 MG PO HS Montelukast Sodium (Singulair), 10 MG PO HS Pantoprazole (Protonix), 40 MG PO QAM Pramipexole Dihydrochloride (Mirapex), 2 TABS PO HS Pyridoxine Hcl (Vitamin B 6), 1 TAB PO QAM Trazodone Hcl (Trazodone), 25 MG PO HS Scheduled PRN Furosemide (Furosemide), 40 MG PO QAM PRN for PRN [Maxair], 2 PUFFS INH QID PRN for Shortness of Breath Allergies Coded Allergies: Buspirone (Verified Allergy, Unknown, N/V, 12/08/16) Chocolate (Verified Allergy, Unknown, MAKES HER ANXIOUS, DEPRESSED, ) Clindamycin (Verified Allergy, Unknown, RASH?, 12/08/16) Doxycycline (Verified Allergy, Unknown, N/V, 12/08/16) Lactose (Verified Allergy, Unknown, WAS TOLD TO AVOID DAIRY, 12/08/16) Meperidine (Verified Allergy, Unknown, NAUSEA AND VOMITING, 12/08/16) Minocycline (Verified Allergy, Unknown, ., 12/08/16) Paroxetine (Verified Allergy, Unknown, ., 12/08/16) Penicillins (Verified Allergy, Unknown, NAUSEA, 12/08/16) Serotonin Reuptake Inhibitors (Verified Allergy, Unknown, BUSPAR, PAXIL- VERY TIRED, 12/08/16) Sulfa Antibiotics (Verified Allergy, Unknown, BACTRIM, 12/08/16) Sulfamethoxazole w/Trimethoprim (Verified Allergy, Unknown, N/V, 12/08/16) Tetracycline (Verified Allergy, Unknown, MINOCYCLINE, DOXYCYCLINE-LUPUS SYMPTOMS, 12/08/16) (PT WAS ON TCN AT HOME 12/16/10 ADMIT, PER MED REC) Yeast (Verified Allergy, Unknown, UNKNOWN-EATS BREAD PRODUCTS, 12/08/16) Physical Exam Vital Signs Date Time Temp Pulse Resp B/P (MAP) Pulse Ox O2 Delivery O2 Flow Rate FiO2 03/04/18 01:49 81 18 148/66 98 03/04/18 01:42 81 18 148/66 98 Room Air 03/04/18 00:30 89 18 128/64 98 Room Air 03/03/18 23:06 91 03/03/18 22:48 36.6 95 18 139/82 100 Room Air Physical Exam General: Non-ill appearing middle-aged female in no acute distress. HEENT: Normal cephalic atraumatic. Pupils are equal round and reactive to light. Extraocular movements are intact. Oropharynx is pink with moist mucous membranes. No swelling of the mouth lips or tongue. Neck: Supple with a midline trachea. No meningeal signs or stiffness, no JVD or bruits. No Stridor. Chest: Clear to auscultation bilaterally. No wheezes or rhonchi. No increased work of breathing. Heart: regular rate and rhythm. Abdomen: Soft nontender, nondistended without rebound guarding or rigidity. Glucose monitor with insulin pump. Extremities: No cyanosis clubbing or edema. No calf tenderness or assymetry. Scabs on arms from itching. No cellulitis. Spine/Back. Non tender to palpation. No CVA tenderness Skin: Good turgor without rashes. Neurologic exam: Cranial nerves two through 12 are intact. Motor and sensation are intact and symmetrical throughout. No tremor. Finger to nose intact. Medical Decision & Procedures ER Provider Diagnostic Interpretation: Chest x-ray per my interpretation reveals no pneumothorax, failure, or infiltrate. Radiology results as stated below per my review and [facility] radiologist interpretation: CT HEAD: Comparison 12/07/16 No acute intracranial hemorrhage, acute edema, or mass effect identified by CT. There are periventricular and subcortical white matter hyperdensities, nonspecific by possibly related to chronic small vessel ischemia. No evidence for hydrocephalus. Mastoid air cells are clear, where visualized. Possible mild mucosal thickening in the frontoethmoid sinuses. Radiologist: Palmer Nicole MD Study ready at 8296 and initial results transmitted at [id number]. Laboratory Results 03/03/18 23:33 Red Blood Count 5.04, Mean Corpuscular Volume 92.3, Mean Corpuscular Hemoglobin 32.1, Mean Corpuscular Hemoglobin Concent 34.8, Mean Platelet Volume 10.0, Neutrophils (%) (Auto) 66.5, Lymphocytes (%) (Auto) 22.5, Monocytes (%) (Auto) 9.6, Eosinophils (%) (Auto) 0.7, Basophils (%) (Auto) 0.4, Neutrophils # (Auto) 4.54, Lymphocytes # (Auto) 1.54, Monocytes # (Auto) 0.66, Eosinophils # (Auto) 0.05, Basophils # (Auto) 0.03 03/03/18 23:33 Test 03/03/18 23:02 03/03/18 23:33 03/03/18 23:39 Bedside Glucose 134 mg/dl (70-90) White Blood Count 6.84 K/uL (4.8-10.8) Red Blood Count 5.04 M/uL (4.2-5.4) Hemoglobin 16.2 g/dL (12.0-16.0) Hematocrit 46.5 % (37-47) Mean Corpuscular Volume 92.3 fL (80-100) Mean Corpuscular Hemoglobin 32.1 pg (25-34) Mean Corpuscular Hemoglobin Concent 34.8 g/dl (32-36) Platelet Count 292 K/uL (130-400) Mean Platelet Volume 10.0 fL (7.4-10.4) Neutrophils (%) (Auto) 66.5 % Lymphocytes (%) (Auto) 22.5 % Monocytes (%) (Auto) 9.6 % Eosinophils (%) (Auto) 0.7 % Basophils (%) (Auto) 0.4 % Neutrophils # (Auto) 4.54 K/uL (1.4-6.5) Lymphocytes # (Auto) 1.54 K/uL (1.2-3.4) Monocytes # (Auto) 0.66 K/uL (0.11-0.59) Eosinophils # (Auto) 0.05 K/uL (0-0.5) Basophils # (Auto) 0.03 K/uL (0-0.2) RDW Standard Deviation 43.3 fL (36.4-46.3) RDW Coefficient of Variation 12.9 % (11.5-14.5) Immature Granulocyte % (Auto) 0.3 % Immature Granulocyte # (Auto) 0.02 K/uL (0.00-0.02) Prothrombin Time 10.3 SECONDS (9.0-12.0) Prothromb Time International Ratio 1.0 (0.9-1.1) Activated Partial Thromboplast Time 25.6 SECONDS (21.0-31.0) Partial Thromboplastin Ratio 1.0 Anion Gap 11.0 mmol/L (3-11) Est Creatinine Clear Calc Drug Dose 54.2 ml/min Estimated GFR () 50.8 Estimated GFR (Non- 43.9 BUN/Creatinine Ratio 11.4 (10-20) Calcium Level 9.7 mg/dl (8.5-10.1) Total Bilirubin 0.8 mg/dl (0.2-1) Direct Bilirubin 0.2 mg/dl (0-0.2) Aspartate Amino Transf (AST/SGOT) 30 U/L (15-37) Alanine Aminotransferase (ALT/SGPT) 37 U/L (12-78) Alkaline Phosphatase 90 U/L (45-117) Total Protein 8.3 gm/dl (6.4-8.2) Albumin 4.1 gm/dl (3.4-5.0) Lipase 44 U/L (73-393) Bedside Troponin I < 0.030 ng/ml (0-0.045) Laboratory studies as stated above per my review. Medications Administered Medications (Trade) Dose Ordered Sig/Aram Route Start Time Stop Time Status Last Admin Dose Admin Sodium Chloride 1,000 ml @ 999 mls/hr Q1H1M STAT IV 03/03/18 23:08 03/04/18 00:08 DC 03/03/18 23:39 999 MLS/HR Sodium Chloride 1,000 ml @ 150 mls/hr Q6H40M ONCE IV 03/03/18 23:08 03/04/18 02:24 DC 03/03/18 23:40 150 MLS/HR Ondansetron HCl (ZOFRAN ODT 4MG Home Pack) 1 homepack UD ONCE PO 03/04/18 01:30 03/04/18 01:31 DC 03/04/18 01:26 1 HOMEPACK ECG Per My Interpretation Indication: weakness Rate (beats per minute): 92 Rhythm: normal sinus Findings: no acute ischemic change, no ectopy, other (Poor baseline. Rightward axis.) Comparison ECG Date: 12/07/2016 Change: no significant change ED Course 2301: Past medical records reviewed. The patient was evaluated in room B09, and a complete history and physical examination were performed. 2308: Ordered Sodium Chloride 1000 ml @ 150 mls/hr IV, Sodium Chloride 1000 ml @ 999 mls/hr IV 0041: I reevaluated the patient, and she is doing much better. 0122: Upon reevaluation, the patient is resting comfortably. I discussed the results and treatment plan with her. She verbalized agreement of the treatment plan. The patient was discharged home when she received her medication. 0130: Ordered Ondansetron HCl 1 homepack PO Medical Decision Differentials include, but are not limited to; dehydration, cardiac disease, intracranial process, diabetic emergency, electrolyte or metabolic abnormality. This patient comes in as described above. she has type 1 diabetes and CVA history among local problems, comes in after having nausea, vomiting, or diarrhea for couple days. she did start Zofran yesterday and is feeling better in regards to the nausea. She has had no chest pain. she felt like her heart was beating fast when she was walking at one point however. No syncope. She has no new neurologic symptoms. She has had no fall or trauma. She has stable vital signs and afebrile. She looks well on exam. IV access established was received 1 L IV normal saline bolus an additional 250 of IV normal saline. She is feeling significantly better and looks well she was drinking fluids without difficulty. She has no white count or fever to suggest infection. She has no acute electrolyte or metabolic abnormalities. Her blood sugar is normal and there is nothing to suggest DKA or acute diabetic emergency. She has a normal neurologic exam and normal CAT scan of her head. There is nothing clinically to suggest a posterior stroke. Her abdomen is benign and nontender. This may be of more of a GI illness. I talked to her at length she strongly desires to go home and is feeling better and I think this is reasonable she should have close follow-up with her regular doctor and rest and drink plenty fluids. She should return if: Worsening of symptoms, fever or chills, chest pain, shortness of breath, any new problems or concerns. Joanna is happy the plan and discharged to home. Medication Reconcilliation Current Medication List: was personally reviewed by me Blood Pressure Screening Patient's blood pressure: Elevated blood pressure Blood pressure disposition: Elevated BP felt to be situational Impression Primary Impression: Nausea, vomiting and diarrhea Additional Impressions: Dehydration Type 1 diabetes Scribe Attestation The scribe's documentation has been prepared under my direction and personally reviewed by me in its entirety. I confirm that the note above accurately reflects all work, treatment, procedures, and medical decision making performed by me. Departure Information Dispostion Home / Self-Care Referrals Adolfo Shay M.D. (PCP) Forms HOME CARE DOCUMENTATION FORM, IMPORTANT VISIT INFORMATION, WORK / SCHOOL INSTRUCTIONS Patient Instructions My [facility] Additional Instructions Rest. Drink plenty of fluids. Mild diet. Use Zofran 4 mg every 6 hours as needed for nausea vomiting Return if: Worsening of symptoms, not tolerating fluids, fever or chills, chest pain, numbness or weakness, any new problems or concerns Follow-up with your doctor in 1-2 days for recheck Problem Qualifiers
[2018-03-03 23:46] LABS: BASO % 0.4 %; BASO ABS # 0.03 K/uL (0-0.2); EOS % 0.7 %; EOS ABS # 0.05 K/uL (0-0.5); HEMATOCRIT 46.5 % (37-47); HEMOGLOBIN 16.2 g/dL (12.0-16.0); IG# 0.02 K/uL (0.00-0.02); LYMPH % 22.5 %; LYMPH ABS # 1.54 K/uL (1.2-3.4); MEAN CELL VOLUME 92.3 fL (80-100); MEAN CORPUSCULAR HEMOGLOBIN 32.1 pg (25-34); MEAN CORPUSCULAR HGB CONC 34.8 g/dl (32-36); MONO % 9.6 %; MONO ABS # 0.66 K/uL (0.11-0.59); NEUT % 66.5 %; NEUT ABS # 4.54 K/uL (1.4-6.5); PLATELET COUNT 292 K/uL (130-400); RED CELL DISTRIBUTION WIDTH CV 12.9 % (11.5-14.5); RED CELL DISTRIBUTION WIDTH SD 43.3 fL (36.4-46.3); WHITE BLOOD COUNT 6.84 K/uL (4.8-10.8)
[2018-03-04 00:02] LABS: PTT PATIENT 25.6 SECONDS (21.0-31.0)
[2018-03-04 00:08] LABS: ALBUMIN 4.1 gm/dl (3.4-5.0); CALCIUM 9.7 mg/dl (8.5-10.1); CREATININE 1.34 mg/dl (0.60-1.20); POTASSIUM 3.8 mmol/L (3.5-5.1); TOTAL PROTEIN 8.3 gm/dl (6.4-8.2)
[2018-03-04] MEDS ORDERED: ONDANSETRON HOME PACK 4MG OD TAB PO ONE (01:30)
[2018-03-04 01:49] VITALS: BP 148/66; PULSE 81; O2SAT 98
--- NOTE | 2018-03-04 06:49 | DIAGNOSTIC IMAGING REPORT ---
CHEST ONE VIEW PORTABLE HISTORY: 57 years-old Female CHEST PAIN acute atypical chest pain COMPARISON: Chest radiograph 12/07/2016 TECHNIQUE: Portable AP view of the chest FINDINGS: Cardiomediastinal and hilar silhouettes are within normal limits. No pneumothorax, pleural effusion, focal airspace consolidation or overt pulmonary edema. Bones of the chest appear grossly intact. IMPRESSION: No acute process. The above report was generated using voice recognition software. It may contain grammatical, syntax or spelling errors. Electronically signed by: Geremias Caldwell M.D. 03/04/2018 6:48 AM Dictated Date/Time: 03/04/2018 6:47 AM
--- NOTE | 2018-03-04 06:52 | DIAGNOSTIC IMAGING REPORT ---
CT OF THE HEAD WITHOUT CONTRAST CLINICAL HISTORY: Dizziness. COMPARISON STUDY: Head CT December 07, 2016 and MRI of the brain December 08, 2016. CT DOSE: 537.48 mGy.cm TECHNIQUE: Helical axial images of the head were obtained without IV contrast. Automated exposure control was utilized for the study. A dose lowering technique was utilized adhering to the principles of ALARA. FINDINGS: No acute intracranial hemorrhage, midline shift or mass effect is present. Ventricular system is normal. Basilar cisterns are patent. There are no extra-axial collections. Periventricular white matter hypodensities are unchanged. There are no findings to suggest acute dural sinus thrombosis or acute territorial infarct. There are no significant calvarial abnormalities. IMPRESSION: No acute intracranial findings. Electronically signed by: Isaiah Higgins M.D. 03/04/2018 6:50 AM Dictated Date/Time: 03/04/2018 6:47 AM
== END 2018-03-04 01:50 | disposition home or self-care (01) ==
LOC: C.EDB 22:47
DX: E86.0 Dehydration (principal); E10.9 Type 1 diabetes mellitus without complications; Z86.73 Personal history of transient ischemic attack (TIA), and cerebral infarction without residual deficits; Z79.82 Long term (current) use of aspirin; J45.909 Unspecified asthma, uncomplicated; Z96.41 Presence of insulin pump (external) (internal); N28.9 Disorder of kidney and ureter, unspecified; Z80.9 Family history of malignant neoplasm, unspecified; Z83.3 Family history of diabetes mellitus; Z83.79 Family history of other diseases of the digestive system; Z82.49 Family history of ischemic heart disease and other diseases of the circulatory system; Z84.1 Family history of disorders of kidney and ureter; Z79.899 Other long term (current) drug therapy; Z79.4 Long term (current) use of insulin; Z88.2 Allergy status to sulfonamides; Z91.018 Allergy to other foods; Z88.0 Allergy status to penicillin; Z88.8 Allergy status to other drugs, medicaments and biological substances; Z88.1 Allergy status to other antibiotic agents

== ENCOUNTER → 2018-03-08 | Outpatient (CLI) | payer OTHER ==
[~2018-03-08] MED LIST changes: +AZEL0.15 NAE; +BUPRTAB51 PO; +CHOL100027 PO; +EFFSR150 PO; +ERGO2000 PO; +FERR1TAB23 PO; +FLVHFA110 INH; +MTR250 PO; +OXYC-57 PO; +PYRI250T7 PO; +ROPI0.5T15 PO; +TRAM-10 PO; +VNTHFA/IN INH
== END | disposition home or self-care (01) ==
LOC: C.LAB 22:53
PROVIDERS: ATTEND Physician Assistant Medical
DX: R19.7 Diarrhea, unspecified (principal)